=== PATIENT | female | born 1940 | race Caucasian/White ===

== ENCOUNTER 2018-07-09 14:23 | Emergency (ER) | payer MEDICARE ==
[~2018-07-09] VITALS: Ht 162.6 cm; Wt 63.5 kg
--- OUTSIDE RECORDS SUMMARY | 2018-07-09 14:28 | XMS REPORT | Clinical Summary ---
Author Author [facility] Organization [facility] Address Unknown Phone Unavailable Care Team Providers Care Heading Maker Name Role Phone Jono Stone MD PCP Unavailable Allergies Comments Active Allergy Reactions Severity Noted Date Other reaction(s): Dizziness Penicillins 05/07/2015 Trazodone Rash Low 04/30/2018 Medications End Date Status Medication Sig Dispensed Refills Start Date Active tobramycin (TOBREX) 0.3 % INSTILL 1 1 drops DROP INTO 7 BOTH EYES 4 TIMES A DAY Active loperamide (IMODIUM) 1 Take 1 mg by 0 mg/5 mL solution mouth 4 (four) times a day as needed for diarrhea. 09/30/2018 Active gabapentin (NEURONTIN) Take 1 270 capsule 0 100 mg capsule capsule (100 8 mg total) by mouth 3 (three) times a day. Active sucralfate (CARAFATE) 1 Take 1 tablet 90 tablet 3 gram tablet (1 g total) 8 by mouth once daily. Active citalopram (CeleXA) 20 MG Take 1 tablet 90 tablet 1 tablet (20 mg total) 8 by mouth daily. Active benzocaine (HURRICAINE) Apply 1 15 each 0 20 % gel application 8 to the mouth or throat 4 (four) times a day as needed for mucositis. Active levothyroxine (SYNTHROID, Take 1 tablet 90 tablet 1 LEVOXYL) 25 mcg tablet (25 mcg 8 total) by mouth daily. Active iron Take 1 100 capsule 1 [id number] capsule by 8 150-60-25-1 py-rm-cyx-mg mouth daily capsule with breakfast. Active simvastatin (ZOCOR) 20 MG Take 1 tablet 90 tablet 1 tablet (20 mg total) 8 by mouth nightly. Active pramipexole (MIRAPEX) 0.5 TAKE ONE 90 tablet 1 MG tablet TABLET BY 8 MOUTH AT NIGHT Active potassium chloride Take 1 tablet 90 tablet 1 (KLOR-CON) 8 MEQ CR (8 mEq total) 8 tablet by mouth daily. Active pantoprazole (PROTONIX) Take 1 tablet 90 tablet 1 40 MG EC tablet (40 mg total) 8 by mouth daily. 01/08/2019 Active furosemide (LASIX) 20 mg Take 1 tablet 30 tablet 5 tablet (20 mg total) 8 by mouth daily. 03/12/2019 Active warfarin (COUMADIN) 5 MG Take 1 tablet 30 tablet 11 tablet (5mg) by 8 mouth daily for 30 days. 09/30/2017 Discontinued sucralfate (CARAFATE) 1 Take 1 tablet 90 tablet 3 gram tablet (1 g total) 7 by mouth once daily. 07/10/2017 Discontinued warfarin (COUMADIN) 1 MG Take 0.5 15 tablet 5 tablet tablets (0.5 7 mg total) by mouth daily. TAKE 1 TABLET(S) EVERY DAY BY ORAL ROUTE. 07/10/2017 Discontinued amLODIPine (NORVASC) 10 Take 1 tablet 90 tablet 1 mg tablet (10 mg total) 8 by mouth daily. 07/10/2017 Discontinued furosemide (LASIX) 20 mg Take 1 tablet 90 tablet 1 tablet (20 mg total) 8 by mouth daily. 07/10/2017 Discontinued gabapentin (NEURONTIN) Take 1 270 capsule 0 100 mg capsule capsule (100 8 mg total) by mouth 3 (three) times a day. 07/10/2017 Discontinued levothyroxine (SYNTHROID, Take 1 tablet 90 tablet 1 LEVOXYL) 25 mcg tablet (25 mcg 8 total) by mouth once daily. 07/10/2017 Discontinued losartan (COZAAR) 100 MG Take 1 tablet 90 tablet 1 tablet (100 mg 8 total) by mouth once daily. 07/10/2017 Discontinued methotrexate 2.5 MG Take 3 36 tablet 1 tablet tablets (7.5 8 mg total) by mouth every 12 (twelve) hours for 3 (three) doses only each week for 180 days. 07/10/2017 Discontinued potassium chloride Take 1 tablet 90 tablet 1 (KLOR-CON 8) 8 MEQ CR (8 mEq total) 8 tablet by mouth once daily. 07/10/2017 Discontinued pramipexole (MIRAPEX) 0.5 Take 1 tablet 90 tablet 1 MG tablet (0.5 mg 8 total) by mouth nightly. 07/10/2017 Discontinued propranolol (INDERAL) 40 Take 1 tablet 180 tablet 1 MG tablet (40 mg total) 8 by mouth 2 (two) times a day. 07/10/2017 Discontinued simvastatin (ZOCOR) 20 MG Take 1 tablet 90 tablet 1 tablet (20 mg total) 8 by mouth nightly. 09/15/2017 Discontinued fluocinolone-emol cmb#65 Apply 1 Dose 375 kit 0 0.025 % cream topically 8 daily. 07/10/2017 Discontinued citalopram (CeleXA) 20 MG Take 1 tablet 90 tablet 1 tablet (20 mg total) 8 by mouth daily. 07/10/2017 Discontinued predniSONE (DELTASONE) 5 TAKE ONE 90 tablet 0 mg tablet TABLET BY 8 MOUTH ONCE DAILY FOR 90 DAYS 09/19/2017 Discontinued esomeprazole (NexIUM) 40 TAKE ONE 1 MG capsule CAPSULE BY 8 MOUTH EVERY MORNING BEFORE BREAKFAST 09/01/2017 Discontinued amLODIPine (NORVASC) 10 Take 1 tablet 90 tablet 1 mg tablet (10 mg total) 8 by mouth daily. 09/30/2017 Discontinued citalopram (CeleXA) 20 MG Take 1 tablet 90 tablet 1 tablet (20 mg total) 8 by mouth daily. 07/24/2017 Discontinued furosemide (LASIX) 20 mg Take 1 tablet 90 tablet 1 tablet (20 mg total) 8 by mouth daily. 09/30/2017 Discontinued gabapentin (NEURONTIN) Take 1 270 capsule 0 100 mg capsule capsule (100 8 mg total) by mouth 3 (three) times a day. 09/01/2017 Discontinued levothyroxine (SYNTHROID, Take 1 tablet 90 tablet 1 LEVOXYL) 25 mcg tablet (25 mcg 8 total) by mouth once daily. 09/30/2017 Discontinued losartan (COZAAR) 100 MG Take 1 tablet 90 tablet 1 tablet (100 mg 8 total) by mouth once daily. 10/19/2017 Discontinued methotrexate 2.5 MG Take 3 36 tablet 1 tablet tablets (7.5 8 mg total) by mouth every 12 (twelve) hours for 3 (three) doses only each week for 180 days. 08/14/2017 Discontinued potassium chloride Take 1 tablet 90 tablet 1 (KLOR-CON 8) 8 MEQ CR (8 mEq total) 8 tablet by mouth once daily. 09/01/2017 Discontinued pramipexole (MIRAPEX) 0.5 Take 1 tablet 90 tablet 1 MG tablet (0.5 mg 8 total) by mouth nightly. 09/30/2017 Discontinued predniSONE (DELTASONE) 5 TAKE ONE 90 tablet 1 mg tablet TABLET BY 8 MOUTH ONCE DAILY FOR 90 DAYS 09/30/2017 Discontinued propranolol (INDERAL) 40 Take 1 tablet 180 tablet 1 MG tablet (40 mg total) 8 by mouth 2 (two) times a day. 09/30/2017 Discontinued simvastatin (ZOCOR) 20 MG Take 1 tablet 90 tablet 1 tablet (20 mg total) 8 by mouth nightly. 09/02/2017 Discontinued warfarin (COUMADIN) 1 MG Take 0.5 15 tablet 5 tablet tablets (0.5 8 mg total) by mouth daily. TAKE 1 TABLET(S) EVERY DAY BY ORAL ROUTE. 09/02/2017 Discontinued warfarin (COUMADIN) 3 MG One po daily 90 tablet 1 tablet 8 09/30/2017 Discontinued furosemide (LASIX) 40 mg Take 1 tablet 90 tablet 1 tablet (40 mg total) 8 by mouth daily. 07/31/2017 sulfamethoxazole-trimetho Take 1 tablet 14 tablet 0 prim (BACTRIM DS) 800-160 by mouth 2 8 mg per tablet (two) times a day for 7 days. 09/01/2017 Discontinued spironolactone 0 (ALDACTONE) 25 MG tablet 8 08/18/2017 diphenoxylate-atropine Take 1 tablet 10 tablet 0 (LOMOTIL) 2.5-0.025 mg by mouth 4 8 per tablet (four) times a day as needed for diarrhea for up to 5 days. 09/01/2017 Discontinued potassium chloride 20 mEq Take 20 mEq 30 tablet 1 tablet extended release by mouth once 8 daily for 30 days. 09/22/2017 aspirin (ECOTRIN) 81 MG Take 1 tablet 30 tablet 0 enteric coated tablet (81 mg total) 8 by mouth daily for 30 days. 09/30/2017 Discontinued levothyroxine (SYNTHROID, TAKE ONE 64 tablet 0 LEVOXYL) 25 mcg tablet TABLET BY 8 MOUTH ONCE DAILY 09/30/2017 Discontinued potassium chloride TAKE ONE 64 tablet 0 (KLOR-CON) 8 MEQ CR TABLET BY 8 tablet MOUTH ONCE DAILY 09/30/2017 Discontinued amLODIPine (NORVASC) 10 TAKE ONE 64 tablet 0 mg tablet TABLET BY 8 MOUTH DAILY 09/30/2017 Discontinued pramipexole (MIRAPEX) 0.5 TAKE ONE 64 tablet 0 MG tablet TABLET BY 8 MOUTH AT NIGHT 09/19/2017 Discontinued rivaroxaban (XARELTO) 15 Take 1 tablet 30 tablet 11 mg tablet (15 mg total) 8 by mouth daily. 10/18/2017 meclizine (ANTIVERT) 25 Take 1 tablet 90 tablet 0 mg tablet (25 mg total) 8 by mouth 3 (three) times a day for 30 days. 09/30/2017 Discontinued apixaban (ELIQUIS) 5 mg Take 1 tablet 60 tablet 0 tablet (5 mg total) 8 by mouth 2 (two) times a day for 30 days. 09/30/2017 Discontinued pantoprazole (PROTONIX) Take 1 tablet 30 tablet 0 40 MG EC tablet (40 mg total) 8 by mouth daily for 30 days. 09/23/2017 Discontinued traMADol (ULTRAM) 50 mg TAKE ONE 120 tablet 5 tablet TABLET BY 8 MOUTH EVERY 6 HOURS NEEDED FOR MODERATE PAIN 09/30/2017 Discontinued spironolactone 0 (ALDACTONE) 25 MG tablet 8 09/30/2017 Discontinued warfarin (COUMADIN) 1 MG 0 tablet 8 09/30/2017 Discontinued collagenase (SANTYL) Apply 15 g 0 ointment topically 8 daily for 30 days. 10/23/2017 traMADol (ULTRAM) 50 mg TAKE ONE 30 tablet 0 tablet TABLET BY 8 MOUTH EVERY 6 HOURS NEEDED FOR MODERATE PAIN 09/30/2017 Discontinued furosemide (LASIX) 20 mg 0 tablet 8 09/30/2017 Discontinued XARELTO 15 mg tablet 0 8 10/19/2017 Discontinued XARELTO 15 mg tablet Take 1 tablet 90 tablet 1 (15 mg total) 8 by mouth daily. 10/19/2017 Discontinued sucralfate (CARAFATE) 1 Take 1 tablet 90 tablet 3 gram tablet (1 g total) 8 by mouth once daily. 10/19/2017 Discontinued spironolactone Take 1 tablet 45 tablet 1 (ALDACTONE) 25 MG tablet (25 mg total) 8 by mouth every other day. 10/19/2017 Discontinued simvastatin (ZOCOR) 20 MG Take 1 tablet 90 tablet 1 tablet (20 mg total) 8 by mouth nightly. 10/19/2017 Discontinued propranolol (INDERAL) 40 Take 1 tablet 180 tablet 1 MG tablet (40 mg total) 8 by mouth 2 (two) times a day. 10/19/2017 Discontinued predniSONE (DELTASONE) 5 TAKE ONE 90 tablet 1 mg tablet TABLET BY 8 MOUTH ONCE DAILY FOR 90 DAYS 10/19/2017 Discontinued pramipexole (MIRAPEX) 0.5 TAKE ONE 90 tablet 1 MG tablet TABLET BY 8 MOUTH AT NIGHT 10/19/2017 Discontinued pantoprazole (PROTONIX) Take 1 tablet 90 tablet 1 40 MG EC tablet (40 mg total) 8 by mouth daily for 30 days. 10/19/2017 Discontinued potassium chloride Take 1 tablet 90 tablet 1 (KLOR-CON) 8 MEQ CR (8 mEq total) 8 tablet by mouth daily. 10/19/2017 Discontinued losartan (COZAAR) 100 MG Take 1 tablet 90 tablet 1 tablet (100 mg 8 total) by mouth once daily. 10/19/2017 Discontinued levothyroxine (SYNTHROID, Take 1 tablet 64 tablet 1 LEVOXYL) 25 mcg tablet (25 mcg 8 total) by mouth daily. 10/19/2017 Discontinued furosemide (LASIX) 40 mg Take 0.5 45 tablet 1 tablet tablets (20 8 mg total) by mouth daily. 10/19/2017 Discontinued citalopram (CeleXA) 20 MG Take 1 tablet 90 tablet 1 tablet (20 mg total) 8 by mouth daily. 10/19/2017 Discontinued amLODIPine (NORVASC) 10 Take 1 tablet 90 tablet 1 mg tablet (10 mg total) 8 by mouth daily. 10/28/2017 Discontinued gabapentin (NEURONTIN) TAKE ONE 33 capsule 0 100 mg capsule CAPSULE BY 8 MOUTH THREE TIMES A DAY 12/24/2017 Discontinued XARELTO 15 mg tablet Take 1 tablet 90 tablet 1 (15 mg total) 8 by mouth daily. 10/30/2017 Discontinued spironolactone Take 1 tablet 45 tablet 1 (ALDACTONE) 25 MG tablet (25 mg total) 8 by mouth every other day. 12/24/2017 Discontinued simvastatin (ZOCOR) 20 MG Take 1 tablet 90 tablet 1 tablet (20 mg total) 8 by mouth nightly. 12/20/2017 Discontinued propranolol (INDERAL) 40 Take 1 tablet 180 tablet 1 MG tablet (40 mg total) 8 by mouth 2 (two) times a day. 12/24/2017 Discontinued predniSONE (DELTASONE) 5 TAKE ONE 90 tablet 1 mg tablet TABLET BY 8 MOUTH ONCE DAILY FOR 90 DAYS 12/24/2017 Discontinued pramipexole (MIRAPEX) 0.5 TAKE ONE 90 tablet 1 MG tablet TABLET BY 8 MOUTH AT NIGHT 12/24/2017 Discontinued potassium chloride Take 1 tablet 90 tablet 1 (KLOR-CON) 8 MEQ CR (8 mEq total) 8 tablet by mouth daily. 11/18/2017 pantoprazole (PROTONIX) Take 1 tablet 90 tablet 1 40 MG EC tablet (40 mg total) 8 by mouth daily for 30 days. 12/24/2017 Discontinued methotrexate 2.5 MG Take 3 36 tablet 1 tablet tablets (7.5 8 mg total) by mouth every 12 (twelve) hours for 3 (three) doses only each week for 180 days. 12/11/2017 Discontinued losartan (COZAAR) 100 MG Take 1 tablet 90 tablet 1 tablet (100 mg 8 total) by mouth once daily. 12/24/2017 Discontinued levothyroxine (SYNTHROID, Take 1 tablet 64 tablet 1 LEVOXYL) 25 mcg tablet (25 mcg 8 total) by mouth daily. 01/08/2018 Discontinued furosemide (LASIX) 40 mg Take 0.5 45 tablet 1 tablet tablets (20 8 mg total) by mouth daily. 12/20/2017 Discontinued amLODIPine (NORVASC) 10 Take 1 tablet 90 tablet 1 mg tablet (10 mg total) 8 by mouth daily. 11/11/2017 traMADol (ULTRAM) 50 mg Take 1 tablet 30 tablet 0 tablet (50 mg total) 8 by mouth every 4 (four) hours as needed for moderate pain for up to 30 doses. 12/24/2017 Discontinued spironolactone Take 1 tablet 45 tablet 1 (ALDACTONE) 25 MG tablet (25 mg total) 8 by mouth every other day. 11/10/2017 doxycycline (ADOXA) 100 Take 1 tablet 14 tablet 0 MG tablet (100 mg 8 total) by mouth 2 (two) times a day for 7 days. 12/24/2017 Discontinued pantoprazole (PROTONIX) Take 40 mg by 1 40 MG EC tablet mouth daily. 8 12/20/2017 Discontinued losartan (COZAAR) 50 MG Take 1 tablet 90 tablet 1 tablet (50 mg total) 8 by mouth daily. 05/01/2018 Discontinued spironolactone Take 1 tablet 30 tablet 11 (ALDACTONE) 25 MG tablet (25 mg total) 8 by mouth daily. 12/24/2017 Discontinued pantoprazole (PROTONIX) Take 1 tablet 90 tablet 1 40 MG EC tablet (40 mg total) 8 by mouth daily. 03/12/2018 Discontinued XARELTO 15 mg tablet Take 1 tablet 30 tablet 5 (15 mg total) 8 by mouth nightly. 05/01/2018 Discontinued spironolactone Take 1 tablet 45 tablet 1 (ALDACTONE) 25 MG tablet (25 mg total) 8 by mouth every other day. 06/25/2018 predniSONE (DELTASONE) 5 TAKE ONE 90 tablet 1 mg tablet TABLET BY 8 MOUTH ONCE DAILY FOR 90 DAYS 06/22/2018 methotrexate 2.5 MG Take 3 36 tablet 1 tablet tablets (7.5 8 mg total) by mouth once a week for 180 days. 06/01/2018 benzonatate (TESSALON) Take 1 30 capsule 0 100 MG capsule capsule (100 9 mg total) by mouth 3 (three) times a day as needed for cough for up to 30 days. 06/01/2018 ipratropium-albuterol Take 3 mL by 360 mL 0 (DUO-NEB) 0.5-2.5 mg/mL nebulization 9 nebulizer every 4 (four) hours while awake for 30 days. 05/12/2018 levoFLOXacin (LEVAQUIN) Take 1 tablet 10 tablet 0 500 MG tablet (500 mg 9 total) by mouth daily for 10 days. 05/07/2018 methylPREDNISolone follow 21 tablet 0 (MEDROL, JOVON,) 4 mg package 9 tablet directions 06/01/2018 furosemide (LASIX) 40 mg Take 1 tablet 60 tablet 0 tablet (40 mg total) 9 by mouth 2 (two) times a day for 30 days. 06/01/2018 potassium chloride Take 1 tablet 60 tablet 0 (K-DUR) 20 MEQ CR tablet (20 mEq 9 total) by mouth 2 (two) times a day for 30 days. 06/17/2018 fluconazole (DIFLUCAN) Take 2 4 tablet 0 100 MG tablet tablets (200 9 mg total) by mouth once a week for 2 doses. 06/19/2018 valACYclovir (VALTREX) Take 1 tablet 30 tablet 0 1000 MG tablet (1,000 mg 9 total) by mouth 3 (three) times a day for 10 days. 06/16/2018 fluconazole (DIFLUCAN) Take 1 tablet 1 tablet 0 150 MG tablet (150 mg 9 total) by mouth once for 1 dose. 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, chronic 07/24/2017 Traumatic open wound of right lower leg 05/07/2017 Risk for falls 04/16/2017 History of knee replacement, total, bilateral 04/16/2017 Atherosclerosis of [place] coronary artery of [place] heart with angina 04/16/2017 pectoris Personal history of transient cerebral ischemia 04/16/2017 Nonrheumatic aortic valve stenosis 04/16/2017 Personal history of allergy to penicillin 04/16/2017 History of artificial joint 04/15/2017 History of cataract extraction 04/15/2017 Pseudophakia of both eyes 04/15/2017 History of colon polyps 04/15/2017 Family history of ischemic heart disease (IHD) 04/15/2017 Nausea 09/12/2016 Chest pain, rule out acute myocardial infarction 08/24/2016 Aphthous stomatitis 08/14/2016 Abdominal pain 05/07/2015 Acquired hypothyroidism 05/07/2015 Acquired trigger finger 05/07/2015 Anemia 05/07/2015 Anxiety 05/07/2015 Arthropathy 05/07/2015 Atrial fibrillation 05/07/2015 Benign essential hypertension 05/07/2015 Benign hypertensive heart disease without congestive heart failure 05/07/2015 Abnormal blood chemistry level 05/07/2015 Contusion of head 05/07/2015 Cerebral arteritis in other diseases classified elsewhere 05/07/2015 Stage 3 chronic kidney disease 05/07/2015 Chronic obstructive pulmonary disease 05/07/2015 Chronic pain 05/07/2015 Macular degeneration 05/07/2015 Diverticulosis of colon without diverticulitis 05/07/2015 Stress incontinence in female 05/07/2015 Gastroesophageal reflux disease 05/07/2015 Hemiparesis following cerebrovascular accident 05/07/2015 HLD (hyperlipidemia) 05/07/2015 Hiatal hernia 05/07/2015 Benign hypertensive heart and kidney disease with CHF and stage 3 chronic 05/07/2015 kidney disease Hypothyroidism 05/07/2015 Iron deficiency anemia 05/07/2015 Blindness, legal 05/07/2015 Low back pain 05/07/2015 Femoral bruit 05/07/2015 Rheumatoid arthritis 05/07/2015 Tobacco dependence syndrome 05/07/2015 Venous stasis 05/07/2015 Resolved Problems Problem Noted Date Resolved Date Gastrointestinal hemorrhage 09/06/2017 12/24/2017 Gastrointestinal hemorrhage with melena 09/06/2017 12/24/2017 Overview: Added automatically from request for surgery [id number] Venous stasis ulcer of right calf with fat layer exposed without varicose 06/08/2017 07/10/2017 veins Pneumonia of right lower lobe due to infectious organism 05/24/2017 07/10/2017 BMI 25.0-25.9,adult 05/07/2017 07/10/2017 Severe episode of recurrent major depressive disorder, without psychotic 04/16/2017 07/10/2017 features Senile arthritis 04/16/2017 07/10/2017 Routine general medical examination at a health care facility 04/16/2017 07/10/2017 BMI 24.0-24.9, adult 04/15/2017 07/10/2017 History of skin cancer 04/15/2017 07/10/2017 BMI 26.0-26.9,adult 01/13/2017 12/24/2017 Dizziness 12/25/2016 07/10/2017 Influenza vaccination administered at current visit 12/09/2016 07/10/2017 Seborrheic keratoses 12/09/2016 07/10/2017 Overview: no sign of inflammation; reassured; rtc for cryo prn Early satiety 09/12/2016 07/10/2017 Traumatic hematoma of right lower leg 05/23/2016 07/10/2017 COPD exacerbation 04/08/2016 07/10/2017 Major depressive disorder, recurrent, severe without psychotic features 05/07/2015 07/10/2017 Venous stasis dermatitis 05/07/2015 07/10/2017 Vertigo 05/07/2015 07/10/2017 Encounters Care Team Description Date Type Specialty Javy Tarango MD Chronic venous stasis dermatitis (Primary Dx); Chronic kidney disease, unspecified CKD stage 07/02/2018 Emergency Emergency Medicine 07/02/2018 Travel Jono Stone MD 06/24/2018 Telephone Family Jonathan Layton MD Edema of both legs 06/21/2018 Hospital Radiology Encounter Jonathan Mcmillan MD Edema of both legs (Primary Dx) 06/21/2018 Transcribe Access Orders Jono Stone MD 06/16/2018 Orders Only Family Medicine Jono Stone MD Non-pressure chronic ulcer of buttock with fat layer exposed (HCC) (Primary Dx) 06/09/2018 Office Visit Wound Care Jono Stone MD 06/09/2018 Orders Only Family Medicine Joel Stern MD Allencherril, Jonathon Shin MD Hypervolemia, unspecified hypervolemia type (Primary Dx); Cough 04/30/2018 Emergency General Internal Medicine - 05/02/2018 Elizabeth Thurman MA Atrial fibrillation, unspecified type (HCC) (Primary Dx) 03/12/2018 Refill Family Medicine Melissa Sanchez MA Eye exam, routine (Primary Dx) 03/11/2018 Orders Only [facility] Melissa Sanchez MA Loosening of knee joint prosthesis, initial encounter (HCC) (Primary Dx); Mechanical loosening of prosthetic knee, initial encounter (HCC) 03/11/2018 Orders Only Family Danyell Barney NP Pigmented skin lesions (Primary Dx); Hand pain, right 01/21/2018 Orders Only Family Danyell Barney NP Rheumatoid arteritis (Primary Dx) 01/13/2018 Office Visit Family Elizabeth Casper MA 01/08/2018 Refill Family Medicine Jono Stone MD Traumatic open wound of right lower leg, subsequent encounter (Primary Dx); Influenza vaccination given; Tobacco dependence syndrome; Moderate episode of recurrent major depressive disorder; Other hyperlipidemia; BMI 24.0-24.9, adult; Other iron deficiency anemia; Hypothyroidism, unspecified type; Gastroesophageal reflux disease without esophagitis; Simple chronic bronchitis; Atherosclerosis of [place] coronary artery of [place] heart with angina pectoris; Paroxysmal atrial fibrillation; 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, chronic; Rheumatoid arthritis involving right shoulder with positive rheumatoid factor; CKD (chronic kidney disease) stage 3, GFR 30-59 ml/min; Benign hypertensive heart and kidney disease with CHF and stage 3 chronic kidney disease 12/24/2017 Office Visit Family Medicine Jono Stone MD 12/24/2017 Orders Only Family Medicine Anil Juarez MD Berberian, Esteban N., MD Hypotension due to drugs (Primary Dx); Hypotension, unspecified hypotension type; Dizziness; Anemia, unspecified type; Chronic bronchitis, unspecified chronic bronchitis type 12/18/2017 Emergency General Internal Medicine - 12/20/2017 Jono Stone MD Istre, Trudy Bertrand, NP Stomatitis and mucositis (Primary Dx) 12/15/2017 Office Visit Family Jono Louis MD Localized osteoarthrosis, shoulder region, right (Primary Dx) 12/11/2017 Office Visit Family Medicine Jono Stone MD 12/11/2017 Orders Only Family Medicine Jono Stone MD Traumatic open wound of right lower leg, subsequent encounter (Primary Dx) 11/30/2017 Office Visit Family Medicine Danyell Roche NP Loosening of knee joint prosthesis, initial encounter (Primary Dx); Mechanical loosening of prosthetic knee, initial encounter 11/23/2017 Orders Only Family Medicine Elizabeth Thurman MA Right knee pain, unspecified chronicity 11/20/2017 Orders Only [facility] Melissa Sanchez MA Right knee pain, unspecified chronicity (Primary Dx) 11/17/2017 Orders Only Family Medicine Jono Stone MD Traumatic open wound of right lower leg, subsequent encounter (Primary Dx) 11/16/2017 Office Visit Family Jono Louis MD Traumatic open wound of right lower leg, subsequent encounter (Primary Dx) 11/03/2017 Office Visit Family Medicine Melissa Sanchez MA 10/30/2017 Orders Only Family Medicine Davian Aquino MD Berberian, Esteban N., MD Fall, initial encounter (Primary Dx); Syncope, unspecified syncope type; Hypotension, unspecified hypotension type; Chronic bronchitis, unspecified chronic bronchitis type 10/28/2017 Emergency General Internal Medicine - 10/29/2017 Jono Stone MD Skin tear of left upper arm without complication, initial encounter (Primary Dx) 10/19/2017 Office Visit Family Medicine Chase, Jono, MD 10/02/2017 Refill [facility] Mee Griggs, PAPO 10/02/2017 Telephone [facility] Jono Stone MD Venous stasis ulcer of calf limited to breakdown of skin without varicose veins, unspecified laterality (Primary Dx); Tobacco dependence syndrome; BMI 26.0-26.9,adult; Iron deficiency anemia due to chronic blood loss; Hypothyroidism, unspecified type 09/30/2017 Office Visit [facility] Danyell Roche NP Venous stasis (Primary Dx); Venous stasis ulcer of other part of left lower leg limited to breakdown of skin without varicose veins; Anemia, unspecified type 09/23/2017 Office Visit [facility] Mee Griggs, PAPO 09/23/2017 Telephone [facility] Jono Stone MD 09/21/2017 Refill [facility] Jocelyn Chaudhry RN 09/19/2017 Patient Quality Outreach Jessica Duncan MD Allencherril, Paul Joseph, MD Hypotension, unspecified hypotension type (Primary Dx); Weakness; Acute kidney injury; Chronic bronchitis, unspecified chronic bronchitis type; Idiopathic hypotension 09/12/2017 [facility] General Internal Medicine - Encounter 09/19/2017 Jocelyn Chaudhry RN 09/10/2017 Patient Quality Outreach Samuel Joseph MD COLONOSCOPY with BX 09/09/2017 Surgery Gastroenterology [place], Yaneth Orta MD 09/09/2017 Anesthesia Gastroenterology Event Samuel Joseph MD EGD WITH BIOPSY 09/08/2017 Surgery Gastroenterology [facility] [place], Ashley Costa MD 09/08/2017 Anesthesia Gastroenterology Event Joel Stern MD Berberian, Esteban N., MD Gastrointestinal hemorrhage with melena (Primary Dx); Gastrointestinal hemorrhage, unspecified gastrointestinal hemorrhage type; Chronic bronchitis, unspecified chronic bronchitis type 09/06/2017 [facility] General Internal Medicine - Encounter 09/10/2017 Jono Stone MD Benign hypertensive heart disease without congestive heart failure (Primary Dx); Atherosclerosis of [place] coronary artery of [place] heart with angina pectoris 09/02/2017 Office Visit Family Danyell Barney, ANNMAIRE 08/31/2017 Refill [facility] Jono Stone MD Istre, Trudy Bertrand [employer] [facility] discharge follow-up (Primary Dx); Atherosclerosis of [place] coronary artery of [place] heart with angina pectoris; Chronic obstructive pulmonary disease, unspecified COPD type; 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, chronic; Tobacco dependence syndrome; Frail elderly; Debility; Risk for falls 08/24/2017 Office Visit Family Medicine Yolanda Godinez RN 08/23/2017 Patient Quality Outreach Joel Stern MD Allencherril, Jonathon Shin MD Left leg weakness (Primary Dx); Transient cerebral ischemia, unspecified type; Chronic bronchitis, unspecified chronic bronchitis type; Epigastric pain 08/21/2017 Emergency General Internal Medicine - 08/23/2017 Elizabeth Thurman MA Atrial fibrillation, unspecified type (Primary Dx) 08/21/2017 Telephone Family Medicine Danyell Roche NP 08/21/2017 Telephone Family Medicine Jono Stone MD Venous ulcer (Primary Dx) 08/17/2017 Clinical Family Medicine Support Melissa Sanchez MA 08/14/2017 Orders Only Family Medicine Jono Stone MD Acute diarrhea (Primary Dx) 08/13/2017 Office Visit Family Jono Louis MD 08/13/2017 Orders Only Family Medicine Jono Stone MD Venous stasis ulcer with edema of lower leg (Primary Dx) 08/07/2017 Office Visit Family Medicine Danyell Roche NP Venous stasis (Primary Dx) 07/31/2017 Office Visit Family Jono Louis MD Venous stasis ulcer of other part of left lower leg limited to breakdown of skin without varicose veins (Primary Dx); Benign hypertensive heart disease with CHF (congestive heart failure); Atherosclerosis of [place] coronary artery of [place] heart with angina pectoris; Nonrheumatic aortic valve stenosis; BMI 26.0-26.9,adult; Tobacco dependence syndrome; 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, chronic 07/24/2017 Office Visit Family Medicine Elizabeth Thurman MA 07/14/2017 Telephone Family Medicine Jono Stone MD Benign hypertensive heart disease without congestive heart failure (Primary Dx); Persistent atrial fibrillation; Atherosclerosis of [place] coronary artery of [place] heart with angina pectoris; Nonrheumatic aortic valve stenosis; Simple chronic bronchitis; 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; Rheumatoid arthritis involving both hands with positive rheumatoid factor; Gastroesophageal reflux disease, esophagitis presence not specified; Other iron deficiency anemia; BMI 24.0-24.9, adult; History of knee replacement, total, bilateral; Other hyperlipidemia; Macular degeneration; Mild episode of recurrent major depressive disorder; Tobacco dependence syndrome 07/10/2017 Office Visit Family Medicine after 07/08/2017 Immunizations Name Dates Previously Given Next Due FLUCELVAX QUAD PF (0.5mL 12/20/2017 (Deferred: - paient wishes to get flu syringe) vaccine with PCP) FLUZONE HIGH-DOSE PF 12/24/2017, 12/09/2016, 12/06/2015, 12/18/2014 Influenza Trivalent 01/14/2014 Pneumococcal Conjugate 09/12/2015 13-Valent Pneumococcal 12/27/2013 Polysaccharide Tdap 10/28/2017 (Deferred: - pt reports recieving medication within the last 5 years; Dr. Banda notified) Family History Medical History Relation Name Comments Heart disease Father Arthritis Mother Heart disease Mother Relation Name Status Comments Father Mother Social History Date Tobacco Use Types Packs/Day Years Used Current Every Day Smoker Cigarettes 0.25 62 Smokeless Tobacco: Never Used Comments: started at 11 Alcohol Use Drinks/Week oz/Week Comments No Sex Assigned at Date Recorded Not on file Industry Job Start Date Occupation Not on file Not on file Not on file Travel End Travel History Travel Start No recent travel history available. Last Filed Vital Signs Time Taken Vital Sign Reading 07/02/2018 5:41 PM CDT Blood Pressure 112/56 07/02/2018 5:41 PM CDT Pulse 72 07/02/2018 5:41 PM CDT Temperature 36.6 C (97.8 F) 07/02/2018 5:41 PM CDT Respiratory Rate 17 07/02/2018 5:41 PM CDT Oxygen Saturation 97% - Inhaled Oxygen - Concentration 07/02/2018 1:43 PM CDT Weight 63.5 kg (140 lb) 07/02/2018 1:43 PM CDT Height 162.6 cm (5' 4") 07/02/2018 1:43 PM CDT Body Mass Index 24.03 Plan of Treatment Health Maintenance Due Date Last Done Comments SHINGLES VACCINES (#1) 1989 INFLUENZA VACCINE 11/04/2018 12/24/2017, 12/09/2016, 12/06/2015, Additional history exists PNEUMOCOCCAL Completed 12/27/2013 POLYSACCHARIDE VACCINE AGE 65 AND OVER 65+ PNEUMOCOCCAL VACCINE Completed 09/12/2015, 12/27/2013 Implants Device Identifier Shelf Expiration Date Model / Serial / Lot Implanted Type Area Manufactur er Metal Implant Procedures Comments Procedure Name Priority Date/Time Associated Diagnosis TROPONIN Timed 07/02/2018 5:23 PM CDT XR CHEST 1 VW PORTABLE STAT 07/02/2018 2:43 PM CDT SMEAR REVIEW STAT 07/02/2018 1:59 PM CDT PARTIAL THROMBOPLASTIN STAT 07/02/2018 TIME (PTT) 1:59 PM CDT PROTHROMBIN TIME WITH INR STAT 07/02/2018 1:59 PM CDT ESTIMATED GFR STAT 07/02/2018 1:59 PM CDT B NATRIURETIC PEPTIDE STAT 07/02/2018 1:59 PM CDT TROPONIN STAT 07/02/2018 1:59 PM CDT CREATINE KINASE, TOTAL STAT 07/02/2018 (CPK) 1:59 PM CDT COMPREHENSIVE METABOLIC STAT 07/02/2018 PANEL 1:59 PM CDT HC COMPLETE BLD COUNT STAT 07/02/2018 W/AUTO DIFF 1:59 PM CDT ECG 12-LEAD STAT 07/02/2018 1:50 PM CDT ECG ED PRELIMINARY Routine 07/02/2018 INTERPRETATION 1:38 PM CDT US DUPLEX VENOUS LOWER Routine 06/21/2018 Edema of both legs EXTREMITY BILATERAL 5:51 PM CDT AEROBIC CULTURE Routine 06/09/2018 3:40 PM [employer] GRAM STAIN Routine 06/09/2018 3:40 PM [employer] ANAEROBIC CULTURE Routine 06/09/2018 2:40 PM [employer] SMEAR REVIEW Timed 05/02/2018 5:26 AM [employer] ESTIMATED GFR Timed 05/02/2018 5:26 AM [employer] HC COMPLETE BLD COUNT Timed 05/02/2018 W/AUTO DIFF 5:26 AM [employer] BASIC METABOLIC PANEL Timed 05/02/2018 5:26 AM [employer] PROTHROMBIN TIME WITH INR Timed 05/02/2018 5:[address] ANGIOGRAM PE CHEST STAT 05/01/2018 5:29 PM [employer] PROTHROMBIN TIME WITH INR STAT 05/01/2018 5:25 AM [employer] LACTIC ACID LEVEL, SEPSIS Timed 05/01/2018 - NOW AND REPEAT 2X EVERY 5:25 AM [employer] 3 HOURS TROPONIN Timed 05/01/2018 5:25 AM [employer] LACTIC ACID LEVEL, SEPSIS Timed 05/01/2018 - NOW AND REPEAT 2X EVERY 12:28 AM [employer] 3 HOURS TROPONIN Timed 05/01/2018 12:28 AM [employer] BLOOD CULTURE, AEROBIC & Routine 04/30/2018 ANAEROBIC 8:03 PM [employer] XR CHEST 1 VW PORTABLE STAT 04/30/2018 7:58 PM [employer] SMEAR REVIEW STAT 04/30/2018 7:50 PM [employer] ESTIMATED GFR STAT 04/30/2018 7:50 PM [employer] LACTIC ACID LEVEL, SEPSIS Timed 04/30/2018 - NOW AND REPEAT 2X EVERY 7:50 PM [employer] 3 HOURS B NATRIURETIC PEPTIDE STAT 04/30/2018 7:50 PM [employer] IN[employer]ER TROPONIN STAT 04/30/2018 7:50 PM [employer] CREATINE KINASE, TOTAL STAT 04/30/2018 (CPK) 7:50 PM [employer] HEPATIC FUNCTION PANEL STAT 04/30/2018 7:50 PM [employer] BASIC METABOLIC PANEL STAT 04/30/2018 7:50 PM [employer] PARTIAL THROMBOPLASTIN STAT 04/30/2018 TIME (PTT) 7:50 PM [employer] IN[employer]ER PROTHROMBIN TIME WITH INR STAT 04/30/2018 7:50 PM [employer] HC COMPLETE BLD COUNT STAT 04/30/2018 W/AUTO DIFF 7:50 PM [employer]ER BLOOD CULTURE, AEROBIC & Routine 04/30/2018 ANAEROBIC 7:50 PM [employer]ER ECG 12-LEAD STAT 04/30/2018 7:36 PM [employer] IN[employer]ER ECG ED PRELIMINARY Routine 04/30/2018 INTERPRETATION 7:25 PM [employer] IN[employer]ER CBC WITH PLATELET AND Routine 12/24/2017 DIFFERENTIAL 3:54 PM CDT TROPONIN Timed 12/19/2017 5:25 PM CDT ECHOCARDIOGRAM 2D Routine 12/19/2017 COMPLETE W MMODE SPECTRAL 4:50 PM CDT COLOR DOPPLER (21955) TROPONIN Timed 12/19/2017 1:16 PM CDT HEMOGLOBIN & HEMATOCRIT Routine 12/19/2017 11:20 AM CDT TROPONIN Timed 12/19/2017 11:20 AM CDT LACTIC ACID LEVEL, SEPSIS Timed 12/19/2017 - NOW AND REPEAT 2X EVERY 11:20 AM CDT 3 HOURS TRANSFUSE RED BLOOD CELLS STAT 12/19/2017 9:39 AM CDT NV CRITICAL CARE, E/M Routine 12/19/2017 30-74 MINUTES 3:43 AM CDT PREPARE RBC Timed 12/19/2017 12:37 AM CDT TYPE AND SCREEN Timed 12/19/2017 12:37 AM CDT URINALYSIS SCREEN AND Routine 12/19/2017 MICROSCOPY, WITH REFLEX 12:06 AM CDT TO CULTURE URINE CULTURE Routine 12/19/2017 12:00 AM CDT OCCULT BLOOD, STOOL Routine 12/18/2017 11:50 PM CDT BLOOD CULTURE, AEROBIC & Routine 12/18/2017 ANAEROBIC 11:31 PM CDT XR CHEST 1 VW PORTABLE STAT 12/18/2017 11:17 PM CDT ECG ED PRELIMINARY Routine 12/18/2017 INTERPRETATION 11:09 PM CDT ECG 12-LEAD STAT 12/18/2017 11:06 PM CDT SMEAR REVIEW STAT 12/18/2017 10:49 PM CDT ESTIMATED GFR STAT 12/18/2017 10:49 PM CDT TROPONIN STAT 12/18/2017 10:49 PM CDT B NATRIURETIC PEPTIDE STAT 12/18/2017 10:49 PM CDT LIPASE LEVEL STAT 12/18/2017 10:49 PM CDT HEPATIC FUNCTION PANEL STAT 12/18/2017 10:49 PM CDT MAGNESIUM LEVEL STAT 12/18/2017 10:49 PM CDT LACTIC ACID LEVEL, SEPSIS STAT 12/18/2017 - NOW AND REPEAT 2X EVERY 10:49 PM CDT 3 HOURS HC COMPLETE BLD COUNT STAT 12/18/2017 W/AUTO DIFF 10:49 PM CDT BASIC METABOLIC PANEL STAT 12/18/2017 10:49 PM CDT BLOOD CULTURE, AEROBIC & Routine 12/18/2017 ANAEROBIC 10:45 PM CDT PROTHROMBIN TIME WITH INR Routine 12/11/2017 9:31 AM CDT TROPONIN Timed 10/29/2017 4:31 AM CDT TROPONIN Timed 10/29/2017 1:04 AM CDT TROPONIN Timed 10/28/2017 4:35 PM CDT XR PELVIS 3+ VW STAT 10/28/2017 2:31 PM CDT XR CHEST 1 VW PORTABLE STAT 10/28/2017 1:35 PM CDT ECG ED PRELIMINARY Routine 10/28/2017 INTERPRETATION 1:18 PM CDT ZZESTIMATED GFR Routine 10/28/2017 1:14 PM CDT B NATRIURETIC PEPTIDE Routine 10/28/2017 1:14 PM CDT TROPONIN Routine 10/28/2017 1:14 PM CDT COMPREHENSIVE METABOLIC Routine 10/28/2017 PANEL 1:14 PM CDT PROTHROMBIN TIME WITH INR Routine 10/28/2017 1:14 PM CDT HC COMPLETE BLD COUNT Routine 10/28/2017 W/AUTO DIFF 1:14 PM CDT ECG 12-LEAD STAT 10/28/2017 1:07 PM CDT THYROID STIMULATING Routine 09/30/2017 Hypothyroidism, HORMONE 10:13 AM CDT unspecified type TOTAL IRON BINDING Routine 09/30/2017 Iron deficiency anemia CAPACITY 10:13 AM CDT due to chronic blood loss FERRITIN LEVEL Routine 09/30/2017 Iron deficiency anemia 10:13 AM CDT due to chronic blood loss CBC WITH PLATELET AND Routine 09/23/2017 Anemia, unspecified type DIFFERENTIAL 9:29 AM CDT ZZESTIMATED GFR STAT 09/18/2017 2:02 PM CDT BASIC METABOLIC PANEL STAT 09/18/2017 2:02 PM CDT HC COMPLETE BLD COUNT STAT 09/18/2017 W/AUTO DIFF 2:02 PM CDT ZZESTIMATED GFR Timed 09/16/2017 5:58 AM CDT PHOSPHORUS LEVEL Timed 09/16/2017 5:58 AM CDT MAGNESIUM LEVEL Timed 09/16/2017 5:58 AM CDT HC COMPLETE BLD COUNT Timed 09/16/2017 W/AUTO DIFF 5:58 AM CDT BASIC METABOLIC PANEL Timed 09/16/2017 5:58 AM CDT ZZESTIMATED GFR Timed 09/15/2017 6:10 AM CDT PHOSPHORUS LEVEL Timed 09/15/2017 6:10 AM CDT MAGNESIUM LEVEL Timed 09/15/2017 6:10 AM CDT HC COMPLETE BLD COUNT Timed 09/15/2017 W/AUTO DIFF 6:10 AM CDT BASIC METABOLIC PANEL Timed 09/15/2017 6:10 AM CDT FL UGI W AIR HD BA AND STAT 09/14/2017 SMALL BOWEL 2:42 PM CDT ZZESTIMATED GFR Timed 09/14/2017 6:48 AM CDT PHOSPHORUS LEVEL Timed 09/14/2017 6:48 AM CDT MAGNESIUM LEVEL Timed 09/14/2017 6:48 AM CDT HC COMPLETE BLD COUNT Timed 09/14/2017 W/AUTO DIFF 6:48 AM CDT BASIC METABOLIC PANEL Timed 09/14/2017 6:48 AM CDT URINALYSIS SCREEN AND Routine 09/13/2017 MICROSCOPY, WITH REFLEX 5:14 PM CDT TO CULTURE SODIUM LEVEL, URINE, Routine 09/13/2017 RANDOM 5:14 PM CDT PROTEIN, URINE, RANDOM Routine 09/13/2017 5:14 PM CDT POTASSIUM, URINE, RANDOM Routine 09/13/2017 5:14 PM CDT CREATININE LEVEL, URINE, Routine 09/13/2017 RANDOM 5:14 PM CDT GRAM STAIN Routine 09/13/2017 5:14 PM CDT URINE CULTURE Routine 09/13/2017 5:14 PM CDT XR CHEST 1 VW PORTABLE STAT 09/12/2017 11:40 PM CDT BLOOD CULTURE, AEROBIC & Routine 09/12/2017 ANAEROBIC 9:10 PM CDT LACTIC ACID LEVEL, SEPSIS Timed 09/12/2017 - NOW AND REPEAT 2X EVERY 9:00 PM CDT 3 HOURS BLOOD CULTURE, AEROBIC & Routine 09/12/2017 ANAEROBIC 9:00 PM CDT PARTIAL THROMBOPLASTIN STAT 09/12/2017 TIME (PTT) 7:45 PM CDT PROTHROMBIN TIME WITH INR STAT 09/12/2017 7:45 PM CDT ZZESTIMATED GFR STAT 09/12/2017 7:45 PM CDT B NATRIURETIC PEPTIDE STAT 09/12/2017 7:45 PM CDT TROPONIN STAT 09/12/2017 7:45 PM CDT COMPREHENSIVE METABOLIC STAT 09/12/2017 PANEL 7:45 PM CDT HC COMPLETE BLD COUNT STAT 09/12/2017 W/AUTO DIFF 7:45 PM CDT ECG ED PRELIMINARY Routine 09/12/2017 INTERPRETATION 7:22 PM CDT NV CRITICAL CARE, E/M Routine 09/12/2017 30-74 MINUTES 7:22 PM CDT POC GLUCOSE Routine 09/12/2017 7:14 PM CDT ECG 12-LEAD STAT 09/12/2017 7:06 PM CDT ZZESTIMATED GFR Routine 09/10/2017 10:38 AM CDT BASIC METABOLIC PANEL Routine 09/10/2017 10:38 AM CDT HC COMPLETE BLD COUNT Routine 09/10/2017 W/AUTO DIFF 10:38 AM CDT SURGICAL PATHOLOGY Routine 09/09/2017 REQUEST 12:57 PM CDT COLONOSCOPY 09/09/2017 Gastrointestinal 12:45 PM CDT hemorrhage with melena SURGICAL PATHOLOGY Routine 09/08/2017 REQUEST 1:06 PM CDT EGD WITH BIOPSY 09/08/2017 Gastrointestinal 11:45 AM CDT hemorrhage, unspecified gastrointestinal hemorrhage type ZZESTIMATED GFR Routine 09/08/2017 5:52 AM CDT PROTHROMBIN TIME WITH INR Routine 09/08/2017 5:52 AM CDT BASIC METABOLIC PANEL Routine 09/08/2017 5:52 AM CDT HC COMPLETE BLD COUNT Routine 09/08/2017 W/AUTO DIFF 5:52 AM CDT HC COMPLETE BLD COUNT STAT 09/07/2017 W/AUTO DIFF 1:59 PM CDT HEMOGLOBIN & HEMATOCRIT Routine 09/07/2017 11:24 AM CDT TRANSFUSE RED BLOOD CELLS STAT 09/07/2017 3:41 AM CDT TRANSFUSE RED BLOOD CELLS STAT 09/06/2017 11:59 PM CDT TROPONIN Timed 09/06/2017 5:35 PM CDT BLOOD CULTURE, AEROBIC & Routine 09/06/2017 ANAEROBIC 2:10 PM CDT XR CHEST 1 VW PORTABLE STAT 09/06/2017 1:58 PM CDT PREPARE RBC Timed 09/06/2017 1:57 PM CDT MANUAL DIFFERENTIAL STAT 09/06/2017 1:57 PM CDT ZZESTIMATED GFR STAT 09/06/2017 1:57 PM CDT B NATRIURETIC PEPTIDE STAT 09/06/2017 1:57 PM CDT TROPONIN STAT 09/06/2017 1:57 PM CDT CREATINE KINASE, TOTAL STAT 09/06/2017 (CPK) 1:57 PM CDT HEPATIC FUNCTION PANEL STAT 09/06/2017 1:57 PM CDT BASIC METABOLIC PANEL STAT 09/06/2017 1:57 PM CDT TYPE AND SCREEN Timed 09/06/2017 1:57 PM CDT PARTIAL THROMBOPLASTIN STAT 09/06/2017 TIME (PTT) 1:57 PM CDT PROTHROMBIN TIME WITH INR STAT 09/06/2017 1:57 PM CDT CBC WITH PLATELET AND STAT 09/06/2017 DIFFERENTIAL 1:57 PM CDT BLOOD CULTURE, AEROBIC & Routine 09/06/2017 ANAEROBIC 1:57 PM CDT ECG 12-LEAD STAT 09/06/2017 1:42 PM CDT URINALYSIS SCREEN AND STAT 09/06/2017 MICROSCOPY, WITH REFLEX 1:38 PM CDT TO CULTURE URINE CULTURE STAT 09/06/2017 1:38 PM CDT ECG ED PRELIMINARY Routine 09/06/2017 INTERPRETATION 1:19 PM CDT NV CRITICAL CARE, E/M Routine 09/06/2017 30-74 MINUTES 1:19 PM CDT US DUPLEX VENOUS LOWER STAT 08/22/2017 EXTREMITY BILATERAL 11:[address] ABDOMEN PELVIS WO STAT 08/22/2017 CONTRAST 9:30 PM CDT PROTHROMBIN TIME WITH INR STAT 08/22/2017 10:17 AM CDT URINALYSIS SCREEN AND Routine 08/22/2017 MICROSCOPY, WITH REFLEX 7:36 AM CDT TO CULTURE URINE CULTURE Routine 08/22/2017 7:[address] HEAD WO CONTRAST STAT 08/21/2017 6:58 PM CDT ECG ED PRELIMINARY Routine 08/21/2017 INTERPRETATION 6:20 PM CDT XR CHEST 2 VW STAT 08/21/2017 4:00 PM CDT PARTIAL THROMBOPLASTIN STAT 08/21/2017 TIME (PTT) 3:18 PM CDT PROTHROMBIN TIME WITH INR STAT 08/21/2017 3:18 PM CDT ZZESTIMATED GFR STAT 08/21/2017 3:18 PM CDT B NATRIURETIC PEPTIDE STAT 08/21/2017 3:18 PM CDT TROPONIN STAT 08/21/2017 3:18 PM CDT COMPREHENSIVE METABOLIC STAT 08/21/2017 PANEL 3:18 PM CDT HC COMPLETE BLD COUNT STAT 08/21/2017 W/AUTO DIFF 3:18 PM CDT ECG 12-LEAD STAT 08/21/2017 3:14 PM CDT PROTHROMBIN TIME WITH INR Routine 08/13/2017 12:10 PM CDT PROTHROMBIN TIME WITH INR Routine 07/10/2017 10:39 AM CDT CBC WITH PLATELET AND Routine 07/10/2017 Other iron deficiency DIFFERENTIAL 10:39 AM CDT anemia after 07/08/2017 Results * Troponin (07/02/2018 5:23 PM CDT) Only the most recent of 17 results within the time period is included. Troponin <0.30 0.00 - 0.30 ng/mL [facility] Comment: [facility] 0.11 - 1.49 ng/mlMay indicate increased risk of acute coronary syndrome. >=1.5 ng/ml Consistent with acute myocardial infarction. The diagnostic value of a single normal or non-diagnostic result is questionable.Serial samples at 2-6 hour intervals are required to rule out acute myocardial injury. Specimen Plasma specimen Performing Organization Address City/[facility]/Zipcode Phone Number [facility] DEPARTMENT OF [address] [place] [phone] PATHOLOGY AND GENOMIC MEDICINE [id number] [place] [address] * XR Chest 1 Vw Portable (07/02/2018 2:43 PM CDT) Only the most recent of 6 results within the time period is included. Narrative Performed At EXAMINATION:XR CHEST 1 VW PORTABLE [facility] CLINICAL HISTORY:chf COMPARISON:Most recent H prior. IMPRESSION: There is cardiomegaly and pulmonary vascular congestion. [id number] Procedure Note Hm Interface, Radiology Results Incoming - 07/02/2018 3:08 PM CDT EXAMINATION: XR CHEST 1 VW PORTABLE CLINICAL HISTORY: chf COMPARISON: Most recent H prior. IMPRESSION: There is cardiomegaly and pulmonary vascular congestion. [id number] Performing Organization Address City/[facility]/Zipcode Phone Number [facility] [address] [place] [address] * Smear review (07/02/2018 1:59 PM CDT) Only the most recent of 4 results within the time period is included. Platelet slide review Naty adequate [facility] Anisocytosis 1+ [facility] Schistocytes Occasional [facility] Ovalocytes 1+ [facility] Alise cells 1+ [facility] Elliptocytes Occasional [facility] Performing Organization Address City/State/Zipcode Phone Number [facility] DEPARTMENT OF [address] [phone] PATHOLOGY AND GENOMIC MEDICINE [facility] [address] * Estimated GFR (07/02/2018 1:59 PM CDT) Only the most recent of 4 results within the time period is included. Estimated GFR 33 (A) mL/min/1.73 m2 [facility] Comment: [facility] CatergoryUnitsInte rpretation G1 >=90 Normal or high G2 60-89Mildly decreased [id number] Mildly to moderately decreased [id number] Moderately to severely decreased G4 15-29Severely decreased G5 <15Kidney failure The eGFR was calculated using the Chronic Kidney Disease Epidemiology Collaboration (CKD-EPI) equation. Interpretation is based on recommendations of the National Kidney Foundation-Kidney Disease Outcomes Quality Initiative (NKF-KDOQI) published in 2014. Specimen Plasma specimen Performing Organization Address City/[facility]/Zipcode Phone Number [facility] [address] [place] [address] PATHOLOGY AND GENOMIC MEDICINE [facility] [address] * Partial thromboplastin time, activated (07/02/2018 1:59 PM CDT) Only the most recent of 5 results within the time period is included. PTT 30.1 23.0 - 36.0 sec [facility] Comment: [facility] PTT therapeutic range for unfractionated heparin is 61.0-112.0 seconds which corresponds to Anti-Xa 0.3-0.7 U/ml. Note:Change in Panic Value The PTT Panic Value is changing from 110 sec. to 100 sec. due to new instrumentation and reagents. Correlation studies have been performed to validate this result. Specimen Blood Performing Organization Address City/State/Zipcode Phone Number [facility] [address] [phone] PATHOLOGY AND GENOMIC MEDICINE [facility] [address] * Prothrombin time with INR (07/02/2018 1:59 PM CDT) Only the most recent of 13 results within the time period is included. Prothrombin time 13.7 11.5 - 14.5 sec [facility] INR 1.08 [facility] Comment: [facility] For patients on anticoagulant therapy, reference ranges below: Indication: INR Value Treatment of Venous Thrombosis, 2.0-3.0 pulmonary emboli, or prophylaxis of a venous thrombosis, or systemic emboli. High dose, high risk patients 3.0-4.5 with mechanical valves. NOTE:INR values over 3.0 are sometimes associated with gastrointestinal hemorrhage, especially values over 4.0. Specimen Blood Performing Organization Address City/State/Zipcode Phone Number [facility] DEPARTMENT OF [address] [place] [address] PATHOLOGY AND GENOMIC MEDICINE [place] [phone] [place], [place] [phone] [place] [address] * CBC with platelet and differential (07/02/2018 1:59 PM CDT) Only the most recent of 18 results within the time period is included. WBC 8.7 4.2 - 11.0 k/uL [facility] RBC 2.85 (L) 4.04 - 5.86 m/uL [facility] HGB 9.2 (L) 11.5 - 15.3 g/dL [facility] HCT 29.7 (L) 34.0 - 45.0 % [facility] MCV 104.2 (H) 80.0 - 98.0 fL [facility] MCH 32.3 27.0 - 34.0 pg [facility] MCHC 31.0 (L) 31.5 - 36.5 g/dL [facility] RDW - SD 100.6 (H) 37.0 - 51.0 fL [facility] MPV 10.4 7.4 - 10.4 fL [facility] Platelet count 233 150 - 400 k/uL [facility] Nucleated RBC 0.00 /100 WBC [facility] Neutrophils 90.9 (H) 36.0 - 66.0 % [facility] Lymphocytes 5.0 (L) 24.0 - 44.0 % [facility] Monocytes 2.5 0.0 - 6.0 % [facility] Eosinophils 0.6 0.0 - 6.0 % [facility] Basophils 0.2 0.0 - 1.2 % [facility] Immature granulocytes 0.8 0.0 - 1.0 % [facility] Specimen Blood Performing Organization Address [facility] [place] [address] PATHOLOGY AND GENOMIC MEDICINE [address] * B natriuretic peptide (07/02/2018 1:59 PM CDT) Only the most recent of 7 results within the time period is included. BNP 393 (H) 0 - 100 pg/mL [facility] Specimen Blood Performing Organization Address City/[facility] [place] [address] PATHOLOGY AND GENOMIC MEDICINE [address] * Creatine kinase, total (CPK) (07/02/2018 1:59 PM CDT) Only the most recent of 3 results within the time period is included. Creatine kinase 169 26 - 192 U/L [facility] Specimen Plasma specimen Performing Organization Address [facility] [place] [address] PATHOLOGY AND GENOMIC MEDICINE [address] * Comprehensive metabolic panel (07/02/2018 1:59 PM CDT) Only the most recent of 4 results within the time period is included. Sodium 139 135 - 150 mEq/L [facility] Potassium 3.9 3.5 - 5.0 mEq/L [facility] Chloride 103 98 - 112 mEq/L [facility] CO2 24 24 - 31 mmol/L [facility] Anion gap 12@ANIO 7 - 15 mEq/L [facility] BUN 26 (H) 7 - 18 mg/dL [facility] Creatinine 1.50 (H) 0.50 - 0.90 mg/dL [facility] Glucose 131 (H) 65 - 100 mg/dL [facility] Calcium 8.7 (L) 8.8 - 10.2 mg/dL [facility] Protein 6.1 (L) 6.3 - 8.3 g/dL [facility] Albumin 3.2 (L) 3.5 - 5.0 g/dL [facility] A/G ratio 1.1 0.7 - 3.8 [facility] Alkaline phosphatase 79 0 - 104 U/L [facility] AST 22 10 - 35 U/L [facility] ALT 15 5 - 50 U/L [facility] Total bilirubin 0.5 0.2 - 1.2 mg/dL [facility] [facility] Specimen Plasma specimen Performing Organization Address [facility]/State/Zipcode Phone Number [facility] DEPARTMENT OF [facility] [place] [address] PATHOLOGY AND GENOMIC MEDICINE [place] [id number] * ECG 12 lead (07/02/2018 1:50 PM CDT) Only the most recent of 7 results within the time period is included. Ventricular rate 80 [facility] Atrial rate 80 [facility] NV interval 130 [facility] QRSD interval 90 [facility] QT interval 418 [facility] QTC interval 482 [facility] P axis 1 56 [facility] QRS axis 1 -21 [facility] T wave axis 54 [facility] EKG impression Sinus rhythm NS atrial [facility] tach-Minimal voltage criteria for LVH, may be normal variant-Borderline ECG-In automated comparison with ECG of 30-APR-2018 19:36,-No significant change was found- Narrative Performed At Performing Organization Address City/State/Zipcode Phone Number [facility] MUSE [address] [place] [address] * ECG ED Preliminary Interpretation - Not an Order (07/02/2018 1:38 PM CDT) Only the most recent of 7 results within the time period is included. Narrative Performed At Javy Tarango MD 07/02/20185:59 PM ECG ED Preliminary Interpretation - Not an Order Performed by: Javy Tarango MD Authorized by: Javy Tarango MD ECG reviewed by ED Physician in the absence of a track template maker: yes Interpretation: Interpretation: abnormal Rate: ECG rate:80 ECG rate assessment: normal Rhythm: Rhythm comment:Irregular rhythm Ectopy: Ectopy: none QRS: QRS axis:Normal QRS intervals:Normal Conduction: Conduction: normal ST segments: ST segments:Normal T waves: T waves: normal Q waves: Q waves:III and aVF * Us duplex venous lower extremity (06/21/2018 5:51 PM CDT) Only the most recent of 2 results within the time period is included. Narrative Performed At EXAMINATION:US DUPLEX VENOUS LOWER EXTREMITY BILATERAL [facility] CLINICAL HISTORY: 78 years 1940R60.0 Localized edema, EDEMA LOWER EXTREMITY COMPARISON:None. TECHNIQUE:Grayscale, color Doppler and spectral waveform analysis of the bilateral lower extremity deep venous systems. FINDINGS: The bilateral common femoral, femoral, deep femoral, and popliteal veins are compressible and appear patent. Flow is identified within the visualized deep veins of the bilateral calves. Flow is identified within the visualized segments of the bilateral great saphenous veins. IMPRESSION: No definite evidence of deep venous thrombosis in either lower extremity. [facility]-[id number] Procedure Note Interface, Radiology Results Incoming - 06/21/2018 6:00 PM CDT EXAMINATION: US DUPLEX VENOUS LOWER EXTREMITY BILATERAL CLINICAL HISTORY: 78 years 1940 R60.0 Localized edema, EDEMA LOWER EXTREMITY COMPARISON: None. TECHNIQUE: Grayscale, color Doppler and spectral waveform analysis of the bilateral lower extremity deep venous systems. FINDINGS: The bilateral common femoral, femoral, deep femoral, and popliteal veins are compressible and appear patent. Flow is identified within the visualized deep veins of the bilateral calves. Flow is identified within the visualized segments of the bilateral great saphenous veins. IMPRESSION: No definite evidence of deep venous thrombosis in either lower extremity. [facility]-[id number] Performing Organization Address City/[facility]/[place] [address] * Aerobic culture (06/09/2018 3:40 PM MASONRY INSTALLER) Aerobic culture isolate Corynebacterium striatum [facility] HOSPITAL identification to follow (A) Comment: Specimen Information Specimen Source: Wound Specimen Site: Buttock Specimen Wound Performing Organization Address City/[facility] Phone Number [facility] DEPARTMENT OF [address] [place] [address] PATHOLOGY AND GENOMIC MEDICINE [address] * Gram stain (06/09/2018 3:40 PM MASONRY INSTALLER) Only the most recent of 2 results within the time period is included. Gram stain isolate Rare WBC's [facility] Gram positive cocci HOSPITAL in [facility] Comment: Specimen Information Specimen Source: Wound Specimen Site: Buttock Specimen Wound Performing Organization Address [facility] Phone Number [facility] DEPARTMENT OF [address] [place] [address] PATHOLOGY AND GENOMIC MEDICINE [address] * Anaerobic culture (06/09/2018 2:40 PM MASONRY INSTALLER) Anaerobic culture isolate No anaerobic organisms [facility] isolated. HOSPITAL Comment: Specimen Information Specimen Source: Wound Specimen Site: Buttock Specimen Wound Performing Organization Address [facility] Phone Number [facility] DEPARTMENT OF [address] [place] [address] PATHOLOGY AND GENOMIC MEDICINE [address] * Basic metabolic panel (05/02/2018 5:26 AM MASONRY INSTALLER) Only the most recent of 10 results within the time period is included. Sodium 132 (L) 135 - 150 mEq/L [facility] Potassium 4.2 3.5 - 5.0 mEq/L [facility] Chloride 91 (L) 98 - 112 mEq/L [facility] CO2 24 24 - 31 mmol/L [facility] Anion gap 17@ANIO (H) 7 - 15 mEq/L [facility] BUN 28 (H) 7 - 18 mg/dL [facility] Creatinine 1.40 (H) 0.50 - 0.90 mg/dL [facility] Glucose 225 (H) 65 - 100 mg/dL [facility] Calcium 9.0 8.8 - 10.2 mg/dL [facility] Specimen Plasma specimen Performing Organization Address City/State/Zipcode Phone Number [facility] DEPARTMENT OF [address] [place] [address] PATHOLOGY AND GENOMIC MEDICINE [facility] [address] [place], [place] [id number] [place] [address] * CT Angiogram Pe Chest (05/01/2018 5:29 PM MASONRY INSTALLER) Narrative Performed At EXAMINATION: [facility] CT ANGIOGRAM PE CHEST CLINICAL HISTORY: Shortness of breath TECHNIQUE:CT angiographic images of the chest were obtained during intravenous administration of iodinated contrast. Computerized reformatted images and 3-D MIP images were also obtained and archived (CT pulmonary embolus protocol). Scan was performed using radiation dose reduction techniques. COMPARISON: August 02, 2015 FINDINGS: Pulmonary arterial enhancement is technically adequate. There is no pulmonary embolism. Dependent, basilar small mucoid impactions and mild thickening are noted in the distal airways in the lower lobes associated with some atelectasis. No confluent consolidation. Lungs otherwise demonstrate moderate emphysema, upper lobe predominant. No pleural or pericardial effusion. Marked coronary, aortic, and mitral annular calcifications. Aorta is nonaneurysmal. Multiple subcentimeter hypodense lesions in the kidneys are mostly too small to characterize but statistically likely benign cysts. Osseous structures are intact. IMPRESSION: 1.No pulmonary embolism. 2.Mild basilar bronchitis and small bronchiolar impactions in the lower lobes. No confluent consolidation. 3.Pulmonary emphysema. [facility]-[id number] Procedure Note Interface, Radiology Results Incoming - 05/01/2018 5:40 PM MASONRY INSTALLER EXAMINATION: CT ANGIOGRAM PE CHEST CLINICAL HISTORY: Shortness of breath TECHNIQUE: CT angiographic images of the chest were obtained during intravenous administration of iodinated contrast. Computerized reformatted images and 3-D MIP images were also obtained and archived (CT pulmonary embolus protocol). Scan was performed using radiation dose reduction techniques. COMPARISON: August 02, 2015 FINDINGS: Pulmonary arterial enhancement is technically adequate. There is no pulmonary embolism. Dependent, basilar small mucoid impactions and mild thickening are noted in the distal airways in the lower lobes associated with some atelectasis. No confluent consolidation. Lungs otherwise demonstrate moderate emphysema, upper lobe predominant. No pleural or pericardial effusion. Marked coronary, aortic, and mitral annular calcifications. Aorta is nonaneurysmal. Multiple subcentimeter hypodense lesions in the kidneys are mostly too small to characterize but statistically likely benign cysts. Osseous structures are intact. IMPRESSION: 1. No pulmonary embolism. 2. Mild basilar bronchitis and small bronchiolar impactions in the lower lobes. No confluent consolidation. 3. Pulmonary emphysema. [facility]-[id number] Performing Organization Address City/[facility]/[place] [address] * Lactic acid level, SEPSIS - Now and repeat 2x every 3 hours (05/01/2018 5:25 AM MASONRY INSTALLER) Only the most recent of 6 results within the time period is included. Lactic acid 1.5 0.5 - 2.2 mmol/L [facility] Specimen Blood Performing Organization Address City/[facility]/Zipcode Phone Number [facility] DEPARTMENT OF [address] [place] [address] PATHOLOGY AND GENOMIC MEDICINE [address] * Blood culture, aerobic & anaerobic (04/30/2018 8:03 PM MASONRY INSTALLER) Only the most recent of 8 results within the time period is included. Blood culture isolate No growth after 5 days of [facility] incubation. HOSPITAL Comment: Specimen Information Specimen Source: Blood Specimen Site: rt hand Specimen Blood Performing Organization Address [facility] Phone Number [address] [address] PATHOLOGY AND GENOMIC MEDICINE [address] * Hepatic function panel (04/30/2018 7:50 PM MASONRY INSTALLER) Only the most recent of 3 results within the time period is included. Albumin 3.0 (L) 3.5 - 5.0 g/dL [facility] Total bilirubin <0.3 0.2 - 1.2 mg/dL [facility] Bilirubin direct <0.2 0.0 - 0.4 mg/dL [facility] Alkaline phosphatase 79 0 - 104 U/L [facility] Protein 5.8 (L) 6.3 - 8.3 g/dL [facility] ALT 16 5 - 50 U/L [facility] AST 15 10 - 35 U/L [facility] Specimen Plasma specimen Performing Organization Address City/State/Zipcode Phone Number [facility] DEPARTMENT OF [address] [place] [address] PATHOLOGY AND GENOMIC MEDICINE [place] [id number] [place], [place] [id number] [place] [address] * Echocardiogram complete w contrast and 3D if needed (12/19/2017 4:50 PM CDT) Velocity Ratio (V1/V2) 0.33 m/s [facility] IVS,d 1.07 cm [facility] EF 58.79 % [facility] Ascending aorta 3.50 cm [facility] LVPWD,d 1.10 cm [facility] AoV Mean PG 28.84 mmHg [facility] AV LVOT peak gradient 6.77 mmHg [facility] MV mean gradient 3.79 mmHg [facility] MV valve area p 1/2 2.77 cm2 [facility] method PV Pk Grad 4.37 mmHg [facility] E/A ratio 1.05 [facility] E wave decelartion time 273.92 msec [facility] LVOT Diam,S 1.88 cm [facility] LVOT area 2.77 cm2 [facility] LVOT Vmax 1.33 m/s [facility] LVOT VTI 0.29 m [facility] AoV Peak PG 33.04 mmHg [facility] MV Peak E Harish 1.39 m/s [facility] MV stenosis pressure 1/2 79.44 ms [facility] time MV Peak A Harish 1.33 m/s [facility] Ao Root Diameter 3.01 cm [facility] AoV Area, Vmax 1.26 cm2 [facility] AoV Area, VTI 1.04 cm2 [facility] AoV Vmax 4.09 m/s [facility] IVS/LVPW,2D 0.97 [facility] Left Atrium Dimension 3.82 cm [facility] Anterior LV,d 4.51 cm [facility] LV,s 3.12 cm [facility] PV VMAX 1.05 m/s [facility] TR Vpeak 2.90 mm/s [facility] MV E A ratio 1.05 mmHg [facility] TR pk grad 25.71 mmHg [facility] MR peak grad 8.98 mmHg [facility] Ao Root Diameter 3.01 cm [facility] AR Press Half Time 226.46 ms [facility] LV SYS VOL 38.38 ml [facility] LV HU VOL 93.13 ml [facility] LV SV Teich 2D 54.76 ml [facility] LV Vol s Teich PSAX 38.38 ml [facility] LVOT CO 5.74 l/min [facility] LVOT HR for LVOT CO 71.74 bpm [facility] MV Vmax 1.57 m [facility] MV VTI Tips 0.43 m [facility] AoV Vmn 2.59 [facility] AR slope 4.18 [facility] Ar Vmax 3.27 [facility] IVS s 2D 1.37 [facility] LV FS Cube 2D 30.99 [facility] LV FS Teich 2D 30.99 [facility] AoV VTI 0.78 m [facility] LV EF,2D 67.13 % [facility] MV AE ratio 0.95 [facility] LVOT Vmn 1.01 [facility] Aov area Vmn 1.15 cm2 [facility] LVOT mean grad 4.48 mmHg [facility] MAX Pred HR 141.15 [facility] 85 of MPHR 119.97 [facility] AR DT 780.90 msec [facility] AR pk grad 42.68 mmHg [facility] Calc MPHR 141.15 bpm [facility] IVS pct thck PLAX 27.77 % [facility] LV SV Cube 2D 61.76 ml [facility] LV vol d cube 2D 91.99 ml [facility] LV vol s cube 2D 30.24 ml [facility] LVPW pct thck PLAX 40.58 % [facility] LVPW s PLAX 1.55 cm [facility] MV Decel slope 5.08 m/s2 [facility] Pred Exer Dur R1 5.87 [facility] Pred METS R1 4.45 [facility] Narrative Performed At [facility] Moderate aortic valve stenosis. The left ventricle chamber size is normal. Left Ventricular ejection fraction is 55 - 60%. Mild mitral annular calcification. The aortic valve appears moderately calcified. Moderate aortic valve stenosis. Aortic valve peak vel3.47 Peak/mean 50/26Mm hg Performing Organization Address City/State/Zipcode Phone Number [facility] [address] [place] [address] * Hemoglobin & hematocrit (12/19/2017 11:20 AM CDT) Only the most recent of 2 results within the time period is included. HGB 9.7 (L)Comment: Patient 11.5 - 15.3 g/dL [facility] DEPARTMENT OF received PRBC PATHOLOGY AND GENOMIC MEDICINE HCT 30.1 (L) 34.0 - 45.0 % [facility] DEPARTMENT OF PATHOLOGY AND GENOMIC MEDICINE Specimen Blood Performing Organization Address City/[facility]/Zipcode Phone Number [place] [address] [address] [address] PATHOLOGY AND GENOMIC MEDICINE * Transfuse RBC (12/19/2017 9:39 AM CDT) Only the most recent of 3 results within the time period is included. * CRITICAL CARE (12/19/2017 3:43 AM CDT) Narrative Performed At Anil Juarez MD 12/19/20173:44 AM Critical Care Performed by: ANIL JUAREZ Authorized by: ANIL JUAREZ Critical care provider statement: Critical care time (minutes):33 Critical care start time:12/18/2017 9:00 PM Critical care end time:12/19/2017 12:00 AM Critical care time was exclusive of:Separately billable procedures and treating other patients and teaching time Critical care was necessary to treat or prevent imminent or life-threatening deterioration of the following conditions:Circulatory failure and shock Critical care was time spent personally by me on the following activities:Blood draw for specimens, development of treatment plan with patient or surrogate, evaluation of patient's response to treatment, examination of patient, discussions with primary provider, obtaining history from patient or surrogate, ordering and performing treatments and interventions, ordering and review of laboratory studies, pulse oximetry and re-evaluation of patient's condition Rohit 'yes' if you are taking over critical care for this patient from another provider.: no * Prepare RBC, 2 Units (12/19/2017 12:37 AM CDT) Only the most recent of 2 results within the time period is included. Product name Red Blood Cells -1, Leukored [facility] DEPARTMENT OF PATHOLOGY AND GENOMIC MEDICINE Unit number [id number] [facility] DEPARTMENT OF PATHOLOGY AND GENOMIC MEDICINE Product code [id number] [facility] DEPARTMENT OF PATHOLOGY AND GENOMIC MEDICINE Dispense status Transfused [facility] DEPARTMENT OF PATHOLOGY AND GENOMIC MEDICINE Blood expiration date [facility] DEPARTMENT OF PATHOLOGY AND GENOMIC MEDICINE Blood type code 6200 [facility] DEPARTMENT OF PATHOLOGY AND GENOMIC MEDICINE Blood type A POSITIVE [facility] DEPARTMENT OF PATHOLOGY AND GENOMIC MEDICINE Product name Red Blood Cells -1, Leukored [facility] DEPARTMENT OF PATHOLOGY AND GENOMIC MEDICINE Unit number [id number] [facility] DEPARTMENT OF PATHOLOGY AND GENOMIC MEDICINE Product code [id number] [facility] DEPARTMENT OF PATHOLOGY AND GENOMIC MEDICINE Dispense status Transfused [facility] DEPARTMENT OF PATHOLOGY AND GENOMIC MEDICINE Blood expiration date [facility] DEPARTMENT OF PATHOLOGY AND GENOMIC MEDICINE Blood type code 6200 [facility] DEPARTMENT OF PATHOLOGY AND GENOMIC MEDICINE Blood type A POSITIVE [facility] DEPARTMENT OF PATHOLOGY AND GENOMIC MEDICINE Performing Organization Address [facility] [place] [address] PATHOLOGY AND GENOMIC MEDICINE * Type and screen (12/19/2017 12:37 AM CDT) Only the most recent of 2 results within the time period is included. ABO grouping A [facility] DEPARTMENT OF PATHOLOGY AND GENOMIC MEDICINE Rh type POS [facility] DEPARTMENT OF PATHOLOGY AND GENOMIC MEDICINE Antibody screen (gel) NEG [facility] DEPARTMENT OF PATHOLOGY AND GENOMIC MEDICINE Specimen Blood Performing Organization Address [facility] [place] [address] PATHOLOGY AND GENOMIC MEDICINE * Urinalysis screen and microscopy, with reflex to culture (12/19/2017 12:06 AM CDT) Only the most recent of 4 results within the time period is included. Specimen site Clean catch [facility] DEPARTMENT OF PATHOLOGY AND GENOMIC MEDICINE Color, UA Straw [facility] DEPARTMENT OF PATHOLOGY AND GENOMIC MEDICINE Appearance, UA Clear [facility] DEPARTMENT OF PATHOLOGY AND GENOMIC MEDICINE Specific gravity, UA 1.005 1.001 - 1.035 [facility] DEPARTMENT OF PATHOLOGY AND GENOMIC MEDICINE pH, UA 5.0 5.0 - 8.5 [facility] DEPARTMENT OF PATHOLOGY AND GENOMIC MEDICINE Protein, UA Negative Negative [facility] DEPARTMENT OF PATHOLOGY AND GENOMIC MEDICINE Glucose, UA Negative Negative [facility] DEPARTMENT OF PATHOLOGY AND GENOMIC MEDICINE Ketones, UA Negative Negative [facility] DEPARTMENT OF PATHOLOGY AND GENOMIC MEDICINE Bilirubin, UA Negative Negative [facility] DEPARTMENT OF PATHOLOGY AND GENOMIC MEDICINE Blood, UA Negative Negative [facility] DEPARTMENT OF PATHOLOGY AND GENOMIC MEDICINE Nitrite, UA Negative Negative [facility] DEPARTMENT OF PATHOLOGY AND GENOMIC MEDICINE Urobilinogen, UA Negative <2.0 [facility] DEPARTMENT OF PATHOLOGY AND GENOMIC MEDICINE Leukocyte esterase, UA Negative Negative [facility] DEPARTMENT OF PATHOLOGY AND GENOMIC MEDICINE WBC, UA None seen 0 - 5 /HPF [facility] DEPARTMENT OF PATHOLOGY AND GENOMIC MEDICINE RBC, UA <1 0 - 5 /HPF [facility] DEPARTMENT OF PATHOLOGY AND GENOMIC MEDICINE Bacteria, UA None seen None seen [facility] DEPARTMENT OF PATHOLOGY AND GENOMIC MEDICINE Yeast, UA None seen [facility] DEPARTMENT OF PATHOLOGY AND GENOMIC MEDICINE Yeast with pseudohyphae, None seen [facility] DEPARTMENT OF UA PATHOLOGY AND GENOMIC MEDICINE Hyaline casts, UA 4 /LPF [facility] DEPARTMENT OF PATHOLOGY AND GENOMIC MEDICINE Specimen Urine Performing Organization Address City/State/Zipcode Phone Number [address] [place] [address] PATHOLOGY AND GENOMIC MEDICINE * Urine culture (12/19/2017 12:00 AM CDT) Only the most recent of 4 results within the time period is included. Urine culture SEE COMMENTComment: [facility] DEPARTMENT OF Bacteriuria screen negative. PATHOLOGY AND GENOMIC MEDICINE Performing Organization Address City/[facility]/Zipcode Phone Number [address] [place] [address] PATHOLOGY AND GENOMIC MEDICINE * Occult blood, stool (12/18/2017 11:50 PM CDT) Occult blood, stool Negative for occult blood. [facility] DEPARTMENT OF Comment: PATHOLOGY AND Specimen Information GENOMIC MEDICINE Specimen Source: Stool Specimen Site: Not otherwise specified Specimen Stool - Not otherwise specified Performing Organization Address City/State/Zipcode Phone Number [facility] OF [address] [place] [address]. [place] [address] PATHOLOGY AND GENOMIC MEDICINE * Magnesium level (12/18/2017 10:49 PM CDT) Only the most recent of 4 results within the time period is included. Magnesium 2.40 1.60 - 2.40 mg/dL [facility] DEPARTMENT OF PATHOLOGY AND GENOMIC MEDICINE Specimen Plasma specimen Performing Organization Address City/[facility]/Zipcode Phone Number [address] [place] [address] PATHOLOGY AND GENOMIC MEDICINE * Lipase level (12/18/2017 10:49 PM CDT) Lipase 50 13 - 60 U/L [facility] DEPARTMENT OF PATHOLOGY AND GENOMIC MEDICINE Specimen Plasma specimen Performing Organization Address City/[facility] Phone Number [facility] [address] [place] [address] PATHOLOGY AND GENOMIC MEDICINE * XR Pelvis 3+ Vw (10/28/2017 2:31 PM CDT) Narrative Performed At EXAMINATION:XR PELVIS 3VW [facility] CLINICAL HISTORY: Arthritiship COMPARISON:July 20, 2012 FINDINGS: Degenerative changes in the hips and lower lumbar spine have increased since the prior study. No acute abnormality is identified. There is also diffuse increase in demineralization. IMPRESSION: As above [facility]-[id number] Procedure Note Hm Interface, Radiology Results Incoming - 10/28/2017 2:40 PM CDT EXAMINATION: XR PELVIS 3 VW CLINICAL HISTORY: Arthritis hip COMPARISON: July 20, 2012 FINDINGS: Degenerative changes in the hips and lower lumbar spine have increased since the prior study. No acute abnormality is identified. There is also diffuse increase in demineralization. IMPRESSION: As above [facility]-[id number] Performing Organization Address [facility] Phone Number [facility] [address] [place] [address] * Estimated GFR (10/28/2017 1:14 PM CDT) Only the most recent of 10 results within the time period is included. GFR Non Af Amer 26 (A) mL/min/1.73 m2 [facility] DEPARTMENT OF PATHOLOGY AND GENOMIC MEDICINE GFR Af Amer 31 (A) mL/min/1.73 m2 [facility] DEPARTMENT OF Comment: PATHOLOGY AND Chronic kidney disease: <60 GENOMIC MEDICINE mL/min/1.73m2 Kidney failure: <15 mL/min/1.73m2 The estimated GFR is calculated from the IDMS-traceable Modification of Diet in Renal Disease Equation. The accuracy of the calculation is poor when the creatinine is normal. Calculated values >90 mL/min/1.73m2 are not reported. This equation has not been validated in children (<18 years), women, the elderly (>70 years), or ethnic groups other than Caucasians and Americans. Specimen Plasma specimen Performing Organization Address City/[facility]/Zipcode Phone Number [facility] [address] [place] [address] PATHOLOGY AND GENOMIC MEDICINE * Total iron binding capacity (09/30/2017 10:13 AM CDT) Iron level 26 (L) 45 - 160 mcg/dL [place] [facility] Project Playlist [place] Iron binding capacity 393 250 - 450 mcg/dL (calc) [employer] [place] Iron saturation 7 (L) 11 - 50 % (calc) [employer] [place] Specimen Blood Narrative Performed At FASTING:NO QUEST FASTING: NO Resulting Agency Comment Performing Organization Information: Site ID: [id number] [facility] Address: [address] [place], [place] [id number] Director: Swetha Dasilva Performing Organization Address [facility] [place] [address] * Thyroid stimulating hormone (09/30/2017 10:13 AM CDT) TSH 1.57 0.40 - 4.50 mIU/L [facility] Project Playlist [place] Specimen Blood Narrative Performed At FASTING:NO QUEST FASTING: NO Resulting Agency Comment Performing Organization Information: Site ID: [id number] Name: [facility] Address: [address] [place] [address] Director: Swetha Dasilva Performing Organization Address [facility] [place] [address] * Ferritin level (09/30/2017 10:13 AM CDT) Ferritin level 12 (L) 20 - 288 ng/mL [facility] Project Playlist [place] Specimen Blood Narrative Performed At FASTING:NO QUEST FASTING: NO Resulting Agency Comment Performing Organization Information: Site ID: [id number] Name: [facility] Address: [address] [place] [address] Director: Swetha Dasilva Performing Organization Address [facility] Hospital[facility] [place] [address] * Phosphorus level (09/16/2017 5:58 AM CDT) Only the most recent of 3 results within the time period is included. Phosphorus 3.2 2.5 - 4.5 mg/dL [facility] DEPARTMENT OF PATHOLOGY AND GENOMIC MEDICINE Specimen Plasma specimen Performing Organization Address City/[facility] Phone Number [facility] DEPARTMENT OF [address] [place] [address] PATHOLOGY AND GENOMIC MEDICINE * FL UGI w Air HD BA and Small Bowel (09/14/2017 2:42 PM CDT) Narrative Performed At EXAMINATION:FL UGI W AIR HD BA AND SMALL BOWEL RADIANT CLINICAL HISTORY:anemia COMPARISON:None. TECHNIQUE:Limited upper GI series and small bowel follow-through was performed with effervescent granules and barium. The upper GI procedure was performed while patient in semiupright position. FLUOROSCOPIC TIME:1.8 minutes FINDINGS: 1.Esophagus:Esophagus was distensible. The mucosa and motility were within normal limits. There is no evidence of stricture. 2.Gastroesophageal junction:No evidence of hiatal hernia. Marked gastroesophageal reflux is seen. 3.Stomach:Normally distensible and demonstrates normal contours and mucosal pattern. 4.Duodenum:Bulb and sweep are normal. The duodenal-jejunal junction is in the normal expected position. 5.Small bowel follow-through:Small bowel loops are normal in caliber and distribution. Spot compression views of the terminal ileum are normal. Transit time was normal. IMPRESSION: Marked gastroesophageal reflux. Unremarkable upper GI and small bowel follow-through exam otherwise. [facility]-[id number] Procedure Note Interface, Radiology Results Incoming - 09/14/2017 4:36 PM CDT EXAMINATION: FL UGI W AIR HD BA AND SMALL BOWEL CLINICAL HISTORY: anemia COMPARISON: None. TECHNIQUE: Limited upper GI series and small bowel follow-through was performed with effervescent granules and barium. The upper GI procedure was performed while patient in semiupright position. FLUOROSCOPIC TIME: 1.8 minutes FINDINGS: 1. Esophagus: Esophagus was distensible. The mucosa and motility were within normal limits. There is no evidence of stricture. 2. Gastroesophageal junction: No evidence of hiatal hernia. Marked gastroesophageal reflux is seen. 3. Stomach: Normally distensible and demonstrates normal contours and mucosal pattern. 4. Duodenum: Bulb and sweep are normal. The duodenal-jejunal junction is in the normal expected position. 5. Small bowel follow-through: Small bowel loops are normal in caliber and distribution. Spot compression views of the terminal ileum are normal. Transit time was normal. IMPRESSION: Marked gastroesophageal reflux. Unremarkable upper GI and small bowel follow-through exam otherwise. [facility]-[id number] Performing Organization Address City/State/Zipcode Phone Number [facility] [address] [place] [address] * Sodium level, urine, random (09/13/2017 5:14 PM CDT) Sodium, urine, random 61 mEQ/L [facility] DEPARTMENT OF PATHOLOGY AND GENOMIC MEDICINE Specimen Urine - Urine, clean catch Performing Organization Address [facility] Phone Number [facility] DEPARTMENT [address] [place] [address] PATHOLOGY AND GENOMIC MEDICINE * Protein, urine, random (09/13/2017 5:14 PM CDT) Protein, urine random 14 mg/dL [facility] DEPARTMENT OF PATHOLOGY AND GENOMIC MEDICINE Specimen Urine - Urine, clean catch Performing Organization Address [facility] [place] [address] PATHOLOGY AND GENOMIC MEDICINE * Potassium, urine, random (09/13/2017 5:14 PM CDT) Potassium, urine, random 9 mEq/L [facility] DEPARTMENT OF PATHOLOGY AND GENOMIC MEDICINE Specimen Urine - Urine, clean catch Performing Organization Address [facility] [place] [address] PATHOLOGY AND GENOMIC MEDICINE * Creatinine level, urine, random (09/13/2017 5:14 PM CDT) Creatinine, urine, random 43 mg/dL [facility] DEPARTMENT OF PATHOLOGY AND GENOMIC MEDICINE Specimen Urine - Urine, clean catch Performing Organization Address [facility] [place] [address] PATHOLOGY AND GENOMIC MEDICINE * CRITICAL CARE (09/12/2017 7:22 PM CDT) Narrative Performed At Jessica Duncan MD 09/12/2017 11:51 PM Critical Care Performed by: JESSICA DUNCAN Authorized by: JESSICA DUNCAN Critical care provider statement: Critical care time (minutes):34 Critical care was necessary to treat or prevent imminent or life-threatening deterioration of the following conditions:Shock (gi bleeding) Critical care was time spent personally by me on the following activities:Development of treatment plan with patient or surrogate, discussions with consultants, discussions with primary provider, evaluation of patient's response to treatment, examination of patient, obtaining history from patient or surrogate, review of old charts, re-evaluation of patient's condition, pulse oximetry, ordering and review of laboratory studies, ordering and review of radiographic studies and ordering and performing treatments and interventions * POC glucose (09/12/2017 7:14 PM CDT) POC glucose 110 (H) 65 - 100 mg/dL [facility] DEPARTMENT OF Comment: PATHOLOGY AND Meter ID: [id number] GENOMIC MEDICINE Lawn Maintenance Worker: Gale Harrington Performing Organization Address City/[facility] Hospitalcoks Phone Number [address] [address] PATHOLOGY AND GENOMIC MEDICINE * Surgical pathology request (09/09/2017 12:57 PM CDT) Only the most recent of 2 results within the time period is included. [facility] DEPARTMENT OF PATHOLOGY AND GENOMIC MEDICINE Surgical pathology report See link below for PDF Lab [facility] DEPARTMENT OF Report PATHOLOGY AND GENOMIC MEDICINE Result status This is Final Report to [facility] [id number] PATHOLOGY AND GENOMIC MEDICINE Performing Organization Address [facility] Phone Number [address] [address] PATHOLOGY AND GENOMIC MEDICINE * Manual differential (09/06/2017 1:57 PM CDT) Manual differential PERFORMED [facility] DEPARTMENT OF PATHOLOGY AND GENOMIC MEDICINE Neutrophils 81.0 (H) 36.0 - 66.0 % [facility] DEPARTMENT OF PATHOLOGY AND GENOMIC MEDICINE Lymphocytes 16.0 (L) 24.0 - 44.0 % [facility] DEPARTMENT OF PATHOLOGY AND GENOMIC MEDICINE Monocytes 3.0 0.0 - 6.0 % [facility] DEPARTMENT OF PATHOLOGY AND GENOMIC MEDICINE Eosinophils 0.0 0.0 - 6.0 % [facility] DEPARTMENT OF PATHOLOGY AND GENOMIC MEDICINE Basophils 0.0 0.0 - 1.2 % [facility] DEPARTMENT OF PATHOLOGY AND GENOMIC MEDICINE Metamyelocytes 0 0 - 1 % [facility] DEPARTMENT OF PATHOLOGY AND GENOMIC MEDICINE Promyelocytes 0 0 - 1 % [facility] DEPARTMENT OF PATHOLOGY AND GENOMIC MEDICINE Platelet slide review Naty adequate [facility] DEPARTMENT OF PATHOLOGY AND GENOMIC MEDICINE Anisocytosis 1+ [facility] DEPARTMENT OF PATHOLOGY AND GENOMIC MEDICINE Ovalocytes 1+ [facility] DEPARTMENT OF PATHOLOGY AND GENOMIC MEDICINE Performing Organization Address City/[facility] Phone Number [place] [phone] PATHOLOGY AND GENOMIC MEDICINE * CRITICAL CARE (09/06/2017 1:19 PM CDT) Narrative Performed At Joel Stern MD 09/06/20173:44 PM Critical Care Performed by: JOEL STERN Authorized by: JOEL STERN Critical care provider statement: Critical care time (minutes):38 Critical care end time:09/06/2017 3:43 PM Critical care time was exclusive of:Separately billable procedures and treating other patients and teaching time Critical care was necessary to treat or prevent imminent or life-threatening deterioration of the following conditions: GIB, anemia. Critical care was time spent personally by me on the following activities:Ordering and performing treatments and interventions, ordering and review of laboratory studies, ordering and review of radiographic studies, pulse oximetry, re-evaluation of patient's condition, review of old charts, development of treatment plan with patient or surrogate, discussions with primary provider, examination of patient, obtaining history from patient or surrogate and interpretation of cardiac output measurements * CT Abdomen Pelvis Wo Contrast (08/22/2017 9:30 PM CDT) Narrative Performed At Examination:CT ABDOMEN PELVIS WO CONTRAST RADIANT Clinical History: abdominal pain Comparison: None. Findings: CT scans are performed using radiation dose reduction techniques.Technical factors are evaluated and adjusted to ensure appropriate moderation of exposure.Automated dose management technology is applied to adjust radiation exposure while achieving a diagnostic quality image. CT scan of the abdomen and pelvis was performed without intravenous contrast. The liver, spleen, pancreas, and adrenal glands are unremarkable. The patient is status post cholecystectomy. The kidneys are slightly atrophic. No hydronephrosis is seen. The sigmoid colon shows some scattered diverticuli. No bowel thickening or fat stranding is seen. No bowel dilatation is seen. The appendix is not visualized. No free air or fluid is seen. Urinary bladder is unremarkable. The visualized lung bases are clear. IMPRESSION: 1. Colonic diverticulosis without evidence of inflammation. 2. Otherwise no acute abnormality identified in the abdomen or pelvis. [id number] Procedure Note Hm Interface, Radiology Results Incoming - 08/22/2017 9:41 PM CDT Examination: CT ABDOMEN PELVIS WO CONTRAST Clinical History: abdominal pain Comparison: None. Findings: CT scans are performed using radiation dose reduction techniques. Technical factors are evaluated and adjusted to ensure appropriate moderation of exposure. Automated dose management technology is applied to adjust radiation exposure while achieving a diagnostic quality image. CT scan of the abdomen and pelvis was performed without intravenous contrast. The liver, spleen, pancreas, and adrenal glands are unremarkable. The patient is status post cholecystectomy. The kidneys are slightly atrophic. No hydronephrosis is seen. The sigmoid colon shows some scattered diverticuli. No bowel thickening or fat stranding is seen. No bowel dilatation is seen. The appendix is not visualized. No free air or fluid is seen. Urinary bladder is unremarkable. The visualized lung bases are clear. IMPRESSION: 1. Colonic diverticulosis without evidence of inflammation. 2. Otherwise no acute abnormality identified in the abdomen or pelvis. [id number] Performing Organization Address City/State/Zipcode Phone Number [facility] [address] [place] [address] * CT Head Wo Contrast (08/21/2017 6:58 PM CDT) Narrative Performed At EXAMINATION: [facility] CLINICAL H[facility]ORY: ATAXIASTROKE SUSPECTED ETIOLOGY COMPARISON:03/28/2015. TECHNIQUE: Noncontrast CT of the brain was performed from the skull base to the vertex. Both soft tissue and bone reconstruction algorithms are interpreted. CT imaging was performed with iterative reconstruction techniques and/or automated exposure control to reduce radiation dose. FINDINGS: No intracranial hemorrhage, extra-axial collection, or mass-effect is seen.No acute cortical infarct is identified. No hyperdense vessel is seen. 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 Resection cavity in the left middle cranial fossa is again noted. Involutional changes of brain are again noted. No air-fluid level is seen in the visualized portions of the paranasal sinuses. Mastoid air cells are clear. IMPRESSION: No acute intracranial abnormality identified. No significant interval change. [id number] Procedure Note Interface, Radiology Results Incoming - 08/21/2017 7:04 PM CDT EXAMINATION: CT HEAD WO CONTRAST CLINICAL HISTORY: ATAXIA STROKE SUSPECTED ETIOLOGY COMPARISON: 03/28/2015. TECHNIQUE: Noncontrast CT of the brain was performed from the skull base to the vertex. Both soft tissue and bone reconstruction algorithms are interpreted. CT imaging was performed with iterative reconstruction techniques and/or automated exposure control to reduce radiation dose. FINDINGS: No intracranial hemorrhage, extra-axial collection, or mass-effect is seen. No acute cortical infarct is identified. No hyperdense vessel is seen. 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 Resection cavity in the left middle cranial fossa is again noted. Involutional changes of brain are again noted. No air-fluid level is seen in the visualized portions of the paranasal sinuses. Mastoid air cells are clear. IMPRESSION: No acute intracranial abnormality identified. No significant interval change. [id number] Performing Organization Address [facility] Phone Number [facility] [address] [place] [address] * XR Chest 2 Vw (08/21/2017 4:00 PM CDT) Narrative Performed At Examination: XR CHEST 2 VW RADIANT Clinical history: SHORTNESS OF BREATH Comparison: May 24 Impression: 1. The heart and pulmonary vasculature are within normal limits. 2. No infiltrate or effusion is demonstrated. 3. There is no acute osseous pathology. CONCLUSION: NO RADIOGRAPHIC EVIDENCE OF ACUTE CARDIOPULMONARY ABNORMALITY. [id number] Procedure Note Hm Interface, Radiology Results Incoming - 08/21/2017 4:05 PM CDT Examination: XR CHEST 2 VW Clinical history: SHORTNESS OF BREATH Comparison: May 24 Impression: 1. The heart and pulmonary vasculature are within normal limits. 2. No infiltrate or effusion is demonstrated. 3. There is no acute osseous pathology. CONCLUSION: NO RADIOGRAPHIC EVIDENCE OF ACUTE CARDIOPULMONARY ABNORMALITY. [id number] Performing Organization Address [facility] Phone Number [facility] [address] [place] [address] after 07/08/2017 Insurance Payer Benefit Subscriber ID Type Phone Address Plan / Group HUMANA MEDICARE HUMANA HMO xxxxxxxxx HMO GOLD PLUS MEDICARE Advance Directives Patient has advance care planning documents, and code status on file. For more i nformation, please contact: Oscar Poe [address] [place] [address] Date Inactivated Comments Code Status Date Activated 12/20/2017 5:16 PM Full Code 12/19/2017 12:39 AM Code Status decision reached by: Patient
--- OUTSIDE RECORDS SUMMARY | 2018-07-09 14:28 | XMS REPORT | Continuity of Care Document ---
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/2018 Yolis Najam Pain in right hand Active Diagnosis 04/20/2018 Yolis Najam Primary osteoarthritis, right hand Active Diagnosis 03/11/2018 Yolis Najam Counseling NOS Active Diagnosis 04/20/2018 Yolis Najam Pain in right shoulder Active Diagnosis 04/20/2018 Yolis Najam Back muscle spasm Active Diagnosis 04/20/2018 Yolis Najam Cervicalgia Active Diagnosis 04/20/2018 Yolis Najam Medications Medication Details Route Status Patient Instructions Ordering Provider Order Date Source PredniSONE 1 tab(s) with food Orally Active 10 MG Orally Once a day Naja 07/14/2018 Yolis Najam Lyrica 1 capsule Orally Active 75 MG Orally Twice a day Naja 03/10/2018 Yolis Najam Ergocalciferol 1 capsule Orally Active 20394 UNIT Orally once weekly Najam 2018 Yolis Najam Tizanidine HCl 1 tablet as needed Orally Active 4 MG Orally bedtime Naja 2018 Yolis Najam Zorvolex 1 tab(s) with food as needed Orally Active 18 MG Orally Twice a day Naja 11/26/2017 Yolis Najam Diclofenac Sodium 1 tablet with food or milk Orally Active 50 MG Orally Twice a day Naja 08/06/2017 Yolis Najam Tizanidine HCl 1 tablet as needed Orally Active 4 MG Orally bedtime Najam 07/29/2017 [facility] Ergocalciferol 1 capsule Orally Active [address]508 UNIT Orally once weekly [facility] 07/29/2017 [facility] Danelle Zorvolex 1 tab(s) with food as needed Orally Active 18 MG Orally Twice a day [facility] 07/14/2017 [facility] Peter Gabapentin 1 tab(s) Orally Active 100 MG Orally Three times a day [facility] 11/22/2013 [facility] Meloxicam 1 tablet Orally Active 15 MG Orally Once a day [facility] Cymbalta 1 capsule Orally Active 30 MG Orally Once a day [facility] Voltaren as directed Transdermal Active 1 % Transdermal every 4- 6 hours [facility] Simvastatin 1 tablet in the evening Orally Active 20 MG Orally Once a day [facility] Multivitamins as directed Orally Active [facility] Propranolol HCl 1 tablet Orally Active 40 MG Orally Twice a day [facility] Sucralfate 1 tablet Orally Active 1 GM Orally Twice a day [facility] Hydrocodone-Acetaminophen 1 tablet as needed Orally Active 10- 325 MG Orally every 12 hrs [facility] Meclizine HCl 1 tablet as needed Orally Active 25 MG Orally Once a day [facility] Warfarin Sodium 1 tablet Orally Active 5 MG Orally Two times a Week [facility] Amlodipine Besylate 1 tablet Orally Active 5 MG Orally Once a day [facility] Levothyroxine Sodium 1 tablet on an empty stomach in the morning Orally Active 25 MCG Orally Once a day [facility] Voltaren as directed Transdermal Active 1 % Transdermal every 4- 6 hours [facility] Alprazolam 1 tablet Orally Active 0.25 MG Orally Three times a day [facility] Omeprazole 1 capsule Orally Active 40 MG Orally Once a day [facility] Pantoprazole Sodium 1 packet Orally Active 40 MG Orally Once a day [facility] Pravastatin Sodium 1 tablet Orally Active 20 MG Orally Once a day [facility] Metoclopramide HCl 1 tablet 30 minutes before meals and at bedtime on the tongue and allow to dissolve Orally Active 10 MG Orally Four times a day Najam Yolis Najam Xarelto 1 tablet with food Orally Active 15 MG Orally Once a day Najam Yolis Najam Pramipexole Dihydrochloride 1 tablet before bedtime Orally Active 0.5 MG Orally Once a day Najam Yolis Najam Potassium Chloride ER 2 tablets with food Orally Active 8 MEQ Orally Twice a day Najam Yolis Najam PredniSONE 1 tablet Orally Active 5 MG Orally Once a day Najam Yolis Najam Furosemide 1 tablet Orally Active 20 MG Orally Once a day Najam Yolis Najam Methotrexate 3 tabs Orally Active 2.5 mg Orally Once a week Najam Yolis Najam Citalopram Hydrobromide 1 tablet Orally Active 20 MG Orally Once a day Najam Yolis Najam Diclofenac Sodium 1 tablet with food or milk Orally Active 50 MG Orally Twice a day Najam Yolis Najam Gabapentin 1 tab(s) Orally Active 100 MG Orally Three times a day Najam Yolis Najam Gabapentin 1 tab(s) Orally Active 100 MG Orally Twice a day Najam Yolis Najam Allergies, Adverse Reactions, Alerts Substance Category Reaction Severity Reaction type Status Date Reported Comments Source penicillin Adverse Reaction Info Not Available Adverse Reaction Active 04/15/2018 Yolis Najam Immunizations Immunization Date Given Site Status Last Updated Comments Source Results Order Name Results Value Reference Range Date Interpretation Comments Source Vital Signs Vital Sign Value Date Comments Source Height 65 04/15/2018 Yolis Najam Diastolic (mm Hg) 75 04/15/2018 Yolis Najam Systolic (mm Hg) 123 04/15/2018 Yolis Najam Weight 148.0 04/15/2018 Yolis Najam Height 65 03/10/2018 Yolis Najam Diastolic (mm Hg) 48 03/10/2018 Yolis Najam Systolic (mm Hg) 71 03/10/2018 Yolis Najam Weight 142.6 03/10/2018 Yolis Najam Height 65 02/17/2018 Yolis Najam Diastolic (mm Hg) 67 02/17/2018 Yolis Najam Systolic (mm Hg) 98 02/17/2018 Yolis Najam Weight 147.8 02/17/2018 Yolis Najam Height 65 10/13/2017 Yolis Najam Diastolic (mm Hg) 52 10/13/2017 Yolis Najam Systolic (mm Hg) 97 10/13/2017 Yolis Najam Weight 152.0 10/13/2017 Yolis Najam Height 65 07/29/2017 Yolis Najam Diastolic (mm Hg) 52 07/29/2017 Yolis Najam Systolic (mm Hg) 103 07/29/2017 Yolis Najam Weight 154.6 07/29/2017 Yolis Najam Height 65 07/14/2017 Yolis Najam Diastolic (mm Hg) 47 07/14/2017 Yolis Najam Systolic (mm Hg) 115 07/14/2017 Yolis Najam Weight 150 07/14/2017 Yolis Najam Encounters Location Location Details Encounter Type Encounter Number Reason For Visit Attending Provider ADM Date DC Date Status Source Procedures Procedure Code Date Perfomer Comments Source
--- OUTSIDE RECORDS SUMMARY | 2018-07-09 14:28 | XMS REPORT ---
Author Author Yolis Green Organization [employer] Address Unknown Phone Unavailable Care Team Providers Care Broadcast Operations Manager Name Role Phone Yolis Green CP Unavailable Allergies No Known Allergies Problems Problem Type Condition Code Onset Dates Condition Status Problem Giant cell arteritis 446.5 Active Problem 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 Problem Vitamin D deficiency E55.9 Active Problem Pain in joint, hand 719.44 Active Problem Shoulder Impingement Syndrome 726.2 Active Medications No Known Medications Results No Known Results Summary Purpose eClinicalWorks Submission
--- OUTSIDE RECORDS SUMMARY | 2018-07-09 14:28 | XMS REPORT ---
Author Author Yolis Green Organization [employer] Address Unknown Phone Unavailable Care Team Providers Care Social Worker School Name Role Phone Yolis Green CP Unavailable Allergies No Known Allergies Problems Problem Type Condition Code Onset Dates Condition Status Problem 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 Problem Pain in joint, hand 719.44 Active Problem Giant cell arteritis 446.5 Active Problem Shoulder Impingement Syndrome 726.2 Active Medications No Known Medications Results No Known Results Summary Purpose eClinicalWorks Submission
--- OUTSIDE RECORDS SUMMARY | 2018-07-09 14:28 | XMS REPORT ---
Author Author Yolis Green Organization [employer] Address Unknown Phone Unavailable Care Team Providers Care Pool Finisher Name Role Phone Yolis Green CP Unavailable Allergies, Adverse Reactions, Alerts Substance Reaction Event Type penicillin Info Not Available Non Drug Allergy Problems Problem Type Condition Code Onset Dates Condition Status Assessment Pain in right hand M79.641 Active Assessment Primary osteoarthritis, 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 Assessment Primary osteoarthritis of left hand M19.042 Active Problem Giant cell arteritis 446.5 Active Problem 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 Problem Vitamin D deficiency E55.9 Active Assessment Counseling NOS Z71.9 Active Assessment Pain in joint of left hand M79.642 Active Problem Pain in joint, hand 719.44 Active Problem Shoulder Impingement Syndrome 726.2 Active Assessment Back muscle spasm M62.830 Active Assessment Vitamin D deficiency E55.9 Active Assessment Pain in right shoulder M25.511 Active Medications Medication Code System Code Instructions Start Date End Date Status Dosage Voltaren [facility] 37524967027 1 % Transdermal every 4-6 hours Active as directed Meclizine HCl [facility] 38212467613 25 MG Orally Once a day Active 1 tablet as needed Multivitamins [facility] [address] Orally Active as directed Simvastatin ND 15479627645 20 MG Orally Once a day Active 1 tablet in the evening Alprazolam ND 03541643841 0.25 MG Orally Three times a day Active 1 tablet Tizanidine HCl [facility] 53735818007 4 MG Orally bedtime July 29, 2017 Nov 26, 2017 Active 1 tablet as needed Amlodipine Besylate ND 88634809758 5 MG Orally Once a day Active 1 tablet Gabapentin [facility] 04085205912 100 MG Orally Three times a day Nov 22, 2013 Active as directed Hydrocodone-Acetaminophen [facility] 92953618513 10-325 MG Orally every 12 hrs Active 1 tablet as needed Sucralfate ND 28152191842 1 GM Orally Twice a day Active 1 tablet Propranolol HCl [facility] 37688352380 40 MG Orally Twice a day Active 1 tablet Ergocalciferol [facility] 77206366654 01211 UNIT Orally once weekly July 29, 2017 Nov 26, 2017 Active 1 capsule Levothyroxine Sodium [facility] 55858912962 25 MCG Orally Once a day Active 1 tablet on an empty stomach in the morning Meloxicam [facility] 79764510915 15 MG Orally Once a day Active 1 tablet Cymbalta [facility] 80773191764 30 MG Orally Once a day Active 1 capsule Pravastatin Sodium [facility] 60851167100 20 MG Orally Once a day Active 1 tablet Omeprazole [facility] 68839163019 40 MG Orally Once a day Active 1 capsule Zorvolex [facility] 59730782824 18 MG Orally Twice a day Nov 26, 2017 Active 1 tab(s) with food as needed Metoclopramide HCl [facility] [address]-43 10 MG Orally Four times a day Active 1 tablet 30 minutes before meals and at bedtime on the tongue and allow to dissolve Pantoprazole Sodium [facility] [address]-28 40 MG Orally Once a day Active 1 packet Warfarin Sodium [facility] 24161601430 5 MG Orally Two times a Week Active 1 tablet Vital Signs Date/Time: July 29, 2017 Height 65 in Blood Pressure Diastolic 52 mm Hg Blood Pressure Systolic 103 mm Hg Weight 154.6 lbs Results No Known Results Summary Purpose eClinicalWorks Submission
--- OUTSIDE RECORDS SUMMARY | 2018-07-09 14:29 | XMS REPORT ---
Author Author Yolis Green [facility] eClinical[employer] Address Unknown Phone Unavailable Care Team Providers Care Automation Architect Name Role Phone Yolis Green CP Unavailable Allergies, Adverse Reactions, Alerts Substance Reaction Event Type penicillin Info Not Available Non Drug Allergy Problems Problem Type Condition Code Onset Dates Condition Status Assessment Primary osteoarthritis of left hand M19.042 Active Assessment Pain in joint of left hand M79.642 Active Assessment Primary osteoarthritis, 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 Problem Giant cell arteritis 446.5 Active Problem 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 Problem Vitamin D deficiency E55.9 Active Assessment Pain in right shoulder M25.511 Active Assessment Counseling NOS Z71.9 Active Problem Pain in joint, hand 719.44 Active Problem Shoulder Impingement Syndrome 726.2 Active Assessment Back muscle spasm M62.830 Active Assessment Vitamin D deficiency E55.9 Active Assessment Pain in right hand M79.641 Active Medications Medication Code System Code Instructions Start Date End Date Status Dosage Cymbalta [facility] 05754068426 30 MG Orally Once a day Active 1 capsule Meclizine HCl [facility] 34013038403 25 MG Orally Once a day Active 1 tablet as needed Diclofenac Sodium [facility] 74233762577 50 MG Orally Twice a day August 06, 2017 Active 1 tablet with food or milk Metoclopramide HCl [facility] [address]-72 10 MG Orally Four times a day Active 1 tablet 30 minutes before meals and at bedtime on the tongue and allow to dissolve Gabapentin [facility] 79157215401 100 MG Orally Three times a day Nov 22, 2013 Active as directed Omeprazole [facility] 21903110809 40 MG Orally Once a day Active 1 capsule Pantoprazole Sodium [facility] [address]-15 40 MG Orally Once a day Active 1 packet Amlodipine Besylate ND 07753061446 5 MG Orally Once a day Active 1 tablet Alprazolam [facility] 92772412221 0.25 MG Orally Three times a day Active 1 tablet Hydrocodone-Acetaminophen [facility] 08187096534 10-325 MG Orally every 12 hrs Active 1 tablet as needed Propranolol HCl [facility] 20641609409 40 MG Orally Twice a day Active 1 tablet Levothyroxine Sodium [facility] 68188012622 25 MCG Orally Once a day Active 1 tablet on an empty stomach in the morning Warfarin Sodium [facility] 16046261257 5 MG Orally Two times a Week Active 1 tablet Multivitamins [facility] 103[address] Orally Active as directed Pravastatin Sodium [facility] 46552472908 20 MG Orally Once a day Active 1 tablet Ergocalciferol [facility] 19548360489 13946 UNIT Orally once weekly 2018 Active 1 capsule Voltaren [facility] 16319276787 1 % Transdermal every 4-6 hours Active as directed Simvastatin [facility] 10879236862 20 MG Orally Once a day Active 1 tablet in the evening Sucralfate [facility] 89534612232 1 GM Orally Twice a day Active 1 tablet Tizanidine HCl [facility] 25306708160 4 MG Orally bedtime 2018 Active 1 tablet as needed Vital Signs Date/Time: October 13, 2017 Height 65 in Blood Pressure Diastolic 52 mm Hg Blood Pressure Systolic 97 mm Hg Weight 152.0 lbs Results No Known Results Summary Purpose eClinicalWorks Submission
--- OUTSIDE RECORDS SUMMARY | 2018-07-09 14:29 | XMS REPORT ---
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 Problem Vitamin D deficiency E55.9 Active Assessment Pain in right shoulder M25.511 Active Problem Pain in joint, hand 719.44 Active Problem Shoulder Impingement Syndrome 726.2 Active Assessment Back muscle spasm M62.830 Active Assessment Vitamin D deficiency E55.9 Active Assessment Pain in right hand M79.641 Active Assessment Cervicalgia M54.2 Active Assessment Primary osteoarthritis of left hand M19.042 Active Medications Medication Code System Code Instructions Start Date End Date Status Dosage Sucralfate [facility] 80626994518 1 GM Orally Twice a day Active 1 tablet Levothyroxine Sodium [facility] 65548165793 25 MCG Orally Once a day Active 1 tablet on an empty stomach in the morning Multivitamins [facility] [address] Orally Active as directed Cymbalta [facility] 41038814797 30 MG Orally Once a day Active 1 capsule Diclofenac Sodium [facility] 85499037973 50 MG Orally Twice a day August 06, 2017 Active 1 tablet with food or milk Citalopram Hydrobromide [facility] 68655995500 20 MG Orally Once a day Active 1 tablet Xarelto [facility] 81366759188 15 MG Orally Once a day Active 1 tablet with food Alprazolam [facility] 92091095122 0.25 MG Orally Three times a day Active 1 tablet Pravastatin Sodium [facility] 91109251069 20 MG Orally Once a day Active 1 tablet Amlodipine Besylate [facility] 78110158814 5 MG Orally Once a day Active 1 tablet Pramipexole Dihydrochloride [facility] 77765706807 0.5 MG Orally Once a day Active 1 tablet before bedtime Potassium Chloride ER [facility] 38065839385 8 MEQ Orally Twice a day Active 2 tablets with food Furosemide [facility] 52422500854 20 MG Orally Once a day Active 1 tablet Methotrexate [facility] 95928993189 2.5 MG Orally Active as directed Metoclopramide HCl [facility] [address]-50 10 MG Orally Four times a day Active 1 tablet 30 minutes before meals and at bedtime on the tongue and allow to dissolve Simvastatin [facility] 24896319102 20 MG Orally Once a day Active 1 tablet in the evening PredniSONE [facility] 35510611026 5 MG Orally Once a day Active 1 tablet Pantoprazole Sodium [facility] [address]-35 40 MG Orally Once a day Active 1 packet Meclizine HCl [facility] 59903669090 25 MG Orally Once a day Active 1 tablet as needed Warfarin Sodium [facility] 50920139557 5 MG Orally Two times a Week Active 1 tablet Propranolol HCl [facility] 28289498427 40 MG Orally Twice a day Active 1 tablet Voltaren [facility] 46924592527 1 % Transdermal every 4-6 hours Active as directed Gabapentin [facility] 02205939234 100 MG Orally Three times a day Nov 22, 2013 Active 1 tab(s) Omeprazole [facility] 57843072085 40 MG Orally Once a day Active 1 capsule Hydrocodone-Acetaminophen [facility] 01203647709 10-325 MG Orally every 12 hrs Active 1 tablet as needed Diclofenac Sodium [facility] 00643680296 50 MG Orally Twice a day Active 1 tablet with food or milk Vital Signs Date/Time: Feb 17, 2018 Height 65 in Blood Pressure Diastolic 67 mm Hg Blood Pressure Systolic 98 mm Hg Weight 147.8 lbs Results No Known Results Summary Purpose eClinicalWorks Submission
--- OUTSIDE RECORDS SUMMARY | 2018-07-09 14:29 | XMS REPORT ---
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 Problem Pain in joint, hand 719.44 Active Problem Giant cell arteritis 446.5 Active Assessment Pain in joint of left hand M79.642 Active Assessment Primary osteoarthritis, 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 Problem Shoulder Impingement Syndrome 726.2 Active Assessment Counseling NOS Z71.9 Active Medications Medication Code System Code Instructions Start Date End Date Status Dosage Cymbalta [facility] 88598097341 30 MG Orally Once a day Active 1 capsule Voltaren [facility] 17764399073 1 % Transdermal every 4-6 hours Active as directed Simvastatin ND 05771822877 20 MG Orally Once a day Active 1 tablet in the evening Multivitamins [facility] [address] Orally Active as directed Propranolol HCl ND 14562471786 40 MG Orally Twice a day Active 1 tablet Sucralfate ND 13144897991 1 GM Orally Twice a day Active 1 tablet Gabapentin [facility] 85499428911 100 MG Orally Three times a day Nov 22, 2013 Active as directed Hydrocodone-Acetaminophen [facility] 06624445736 10-325 MG Orally every 12 hrs Active 1 tablet as needed Meclizine HCl ND 32852828692 25 MG Orally Once a day Active 1 tablet as needed Warfarin Sodium ND 38754230649 5 MG Orally Two times a Week Active 1 tablet Amlodipine Besylate ND 30918366385 5 MG Orally Once a day Active 1 tablet Meloxicam ND 46882643087 15 MG Orally Once a day Active 1 tablet Levothyroxine Sodium ND 07225276891 25 MCG Orally Once a day Active 1 tablet on an empty stomach in the morning Voltaren [facility] 83664942089 1 % Transdermal every 4-6 hours Active as directed Zorvolex [facility] 12847425357 18 MG Orally Twice a day July 14, 2017 Active 1 tab(s) with food as needed Alprazolam [facility] 29016083290 0.25 MG Orally Three times a day Active 1 tablet Omeprazole [facility] 41226607162 40 MG Orally Once a day Active 1 capsule Pantoprazole Sodium [facility] [address]-40 40 MG Orally Once a day Active 1 packet Pravastatin Sodium [facility] 62145504928 20 MG Orally Once a day Active 1 tablet Metoclopramide HCl [facility] [address]-75 10 MG Orally Four times a day Active 1 tablet 30 minutes before meals and at bedtime on the tongue and allow to dissolve Vital Signs Date/Time: July 14, 2017 Height 65 in Blood Pressure Diastolic 47 mm Hg Blood Pressure Systolic 115 mm Hg Weight 150 lbs Results No Known Results Summary Purpose eClinicalWorks Submission
--- OUTSIDE RECORDS SUMMARY | 2018-07-09 14:29 | XMS REPORT ---
Author Author Yolis Green Organization [employer] Address Unknown Phone Unavailable Care Team Providers Care Registered Safety Engineer Name Role Phone Yolis Green CP Unavailable [...]
--- OUTSIDE RECORDS SUMMARY | 2018-07-09 14:29 | XMS REPORT ---
Author Author Yolis Green Organization [employer] Address Unknown Phone Unavailable Care Team Providers Care Gas Engine Operator Generators Name Role Phone Yolis Green CP Unavailable [...]
--- OUTSIDE RECORDS SUMMARY | 2018-07-09 14:29 | XMS REPORT ---
Author Author Yolis Green Organization [employer] Address Unknown Phone Unavailable Care Team Providers Care Senior Reservoir Engineer Name Role Phone Yolis Green CP [...]
--- OUTSIDE RECORDS SUMMARY | 2018-07-09 14:29 | XMS REPORT ---
Author Author Yolis Green Organization [employer] Address Unknown Phone Unavailable Care Team Providers Care Ambulance Driver Paramedic Name Role Phone Yolis Green CP Unavailable Allergies, Adverse Reactions, Alerts Substance Reaction Event Type penicillin Info Not Available Non Drug Allergy Problems Problem Type Condition Code Onset Dates Condition Status Assessment Pain in right hand M79.641 Active Assessment Counseling NOS Z71.9 Active Assessment Pain in joint of left hand M79.642 Active Assessment Cervicalgia M54.2 Active Assessment Back muscle spasm M62.830 Active Assessment Vitamin D deficiency E55.9 Active Problem Giant cell arteritis 446.5 Active Problem 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 Problem Vitamin D deficiency E55.9 Active Assessment Pain in right shoulder M25.511 Active Problem Pain in joint, hand 719.44 Active Problem Shoulder Impingement Syndrome 726.2 Active Medications Medication Code System Code Instructions Start Date End Date Status Dosage Propranolol HCl [facility] 19465944340 40 MG Orally Twice a day Active 1 tablet Simvastatin ND 22672658683 20 MG Orally Once a day Active 1 tablet in the evening Gabapentin ND 16459921811 100 MG Orally Twice a day Active 1 tab(s) PredniSONE ND 05273541794 10 MG Orally Once a day July 14, 2018 Active 1 tab(s) with food Lyrica [facility] 87682197504 75 MG Orally Twice a day Mar 10, 2018 Active 1 capsule Pantoprazole Sodium [facility] [address]-27 40 MG Orally Once a day Active 1 packet Xarelto [facility] 80946629845 15 MG Orally Once a day Active 1 tablet with food Diclofenac Sodium ND 06300810748 50 MG Orally Twice a day Active 1 tablet with food or milk Furosemide ND 41947834305 20 MG Orally Once a day Active 1 tablet Methotrexate [facility] 72821724814 2.5 mg Orally Once a week Active 3 tabs Pramipexole Dihydrochloride [facility] 96089936860 0.5 MG Orally Once a day Active 1 tablet before bedtime Citalopram Hydrobromide [facility] 62427893152 20 MG Orally Once a day Active 1 tablet Levothyroxine Sodium [facility] 82729144653 25 MCG Orally Once a day Active 1 tablet on an empty stomach in the morning Sucralfate [facility] 00427563219 1 GM Orally Twice a day Active 1 tablet Potassium Chloride ER [facility] 33135533318 8 MEQ Orally Twice a day Active 2 tablets with food Vital Signs Date/Time: Apr 15, 2018 Height 65 in Blood Pressure Diastolic 75 mm Hg Blood Pressure Systolic 123 mm Hg Weight 148.0 lbs Results No Known Results Summary Purpose eClinicalWorks Submission
--- OUTSIDE RECORDS SUMMARY | 2018-07-09 14:29 | XMS REPORT ---
Author Author Yolis Green Organization e[employer]Works Address Unknown Phone Unavailable Care Team Providers Care Regional Tanker Truck Driver Name Role Phone Yolis Green CP Unavailable [...] Instructions Start Date End Date Status Dosage Xarelto [facility] 79021476454 15 MG Orally Once a day Active 1 tablet with food Lyrica [facility] 40663990568 75 MG Orally Twice a day Mar 10, 2018 Active 1 capsule Pramipexole Dihydrochloride [facility] 54310123771 0.5 MG Orally Once a day Active 1 tablet before bedtime Levothyroxine Sodium [facility] 42251233546 25 MCG Orally Once a day Active 1 tablet on an empty stomach in the morning Potassium Chloride ER [facility] 90860608578 8 MEQ Orally Twice a day Active 2 tablets with food PredniSONE [facility] 86699426215 5 MG Orally Once a day Active 1 tablet Furosemide ND 26765296534 20 MG Orally Once a day Active 1 tablet Methotrexate [facility] 75821682694 2.5 MG Orally Active as directed Sucralfate [facility] 91730734246 1 GM Orally Twice a day Active 1 tablet Simvastatin [facility] 30712143801 20 MG Orally Once a day Active 1 tablet in the evening Propranolol HCl [facility] 47010011502 40 MG Orally Twice a day Active 1 tablet Citalopram Hydrobromide [facility] 36960734587 20 MG Orally Once a day Active 1 tablet Diclofenac Sodium [facility] 58477187644 50 MG Orally Twice a day Active 1 tablet with food or milk Gabapentin [facility] 59971774454 100 MG Orally Three times a day Active 1 tab(s) Pantoprazole Sodium [facility] [address]-14 40 MG Orally Once a day Active 1 packet Vital Signs Date/Time: Mar 10, 2018 Height 65 in Blood Pressure Diastolic 48 mm Hg Blood Pressure Systolic 71 mm Hg Weight 142.6 lbs Results No Known Results Summary Purpose eClinicalWorks Submission
--- OUTSIDE RECORDS SUMMARY | 2018-07-09 14:29 | XMS REPORT ---
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 66911511961 50 MG Orally Twice a day August 06, 2017 Nov 04, 2017 Active 1 tablet with food or milk Zorvolex [facility] 79357497281 18 MG Orally Twice a day Nov 26, 2017 Inactive 1 tab(s) with food as needed Meloxicam [facility] 51617878421 15 MG Orally Once a day Inactive 1 tablet Results No Known Results Summary Purpose eClinicalWorks Submission
--- OUTSIDE RECORDS SUMMARY | 2018-07-09 14:29 | XMS REPORT ---
Author Author Yolis Green Organization [employer] Address Unknown Phone Unavailable Care Team Providers Care Teacher Education Director Name Role Phone Yolis Green CP Unavailable [...]
[2018-07-09 15:47] LABS: BASOPHILS % 0.2 % (0.0-1.0); EOSINOPHILS # (AUTO) 0.1 (0.0-0.4); EOSINOPHILS % 0.5 % (0.0-6.0); HEMATOCRIT 31.8 % (34.2-44.1); LYMPHOCYTES # (AUTO) 0.5 (1.0-3.2); LYMPHOCYTES % 5.6 % (18.0-39.1); MEAN CORPUSCULAR HEMOGLOBIN 32.9 pg (28-32); MEAN CORPUSCULAR HGB CONC 31.4 g/dL (31-35); MEAN CORPUSCULAR VOLUME 104.6 fL (81-99); MONOCYTES # (AUTO) 0.3 (0.2-0.8); MONOCYTES % 2.8 % (4.4-11.3); NEUTROPHILS # (AUTO) 8.4 (2.1-6.9); NEUTROPHILS % 88.4 % (38.7-80.0); PLATELET COUNT 297 x10e3/uL (140-360); RED BLOOD COUNT 3.04 x10e6/uL (3.6-5.1); RED CELL DISTRIBUTION WIDTH 25.7 % (11.7-14.4)
[2018-07-09 15:52] LABS: INR 0.88; PROTHROMBIN TIME 12.4 seconds (11.9-14.5)
[2018-07-09 15:53] LABS: PARTIAL THROMBOPLASTIN TIME 30.3 seconds (23.8-35.5)
[2018-07-09 15:59] LABS: BILIRUBIN,URINE NEGATIVE (NEGATIVE); CLARITY,URINE CLEAR (CLEAR); COLOR,URINE YELLOW (YELLOW); KETONES,URINE NEGATIVE (NEGATIVE); LEUKOCYTE ESTERASE ,URINE NEGATIVE (NEGATIVE); NITRITE,URINE NEGATIVE (NEGATIVE); PROTEIN,URINE DIPSTICK NEGATIVE (NEGATIVE); URINE UROBILINOGEN 0.2 mg/dL (0.2 - 1)
[2018-07-09 16:02] LABS: ALANINE AMINOTRANSFERASE 11 IU/L (0-55); ALBUMIN 3.5 g/dL (3.5-5.0); ALBUMIN/GLOBULIN RATIO 0.9 (0.8-2.0); ALKALINE PHOSPHATASE 62 IU/L (40-150); ANION GAP 12.6 mmol/L (8-16); BLOOD UREA NITROGEN 23 mg/dL (7-26); BUN/CREATININE RATIO 26 (6-25); CALCIUM 9.5 mg/dL (8.4-10.2); CARBON DIOXIDE 29 mmol/L (22-29); CHLORIDE 102 mmol/L (98-107); CREATININE, SERUM 0.87 mg/dL (0.57-1.11); EST GLOMERULAR FILTRATION RATE > 60 ML/MIN (60-); POTASSIUM 3.6 mmol/L (3.5-5.1); SODIUM 140 mmol/L (136-145)
[2018-07-09 16:09] LABS: GLUCOSE 29 mg/dL (74-118)
[2018-07-09 16:11] LABS: BACTERIA,URINE MODERATE /HPF; EPITHELIAL CELLS,URINE MODERATE /LPF
[2018-07-09] MEDS ORDERED: DEXTROSE 50% SYRINGE 50 ML IV ONE ×2 (16:14→16:30)
[2018-07-09] MEDS ORDERED: DEXTROSE 50% SYRINGE 50 ML IV STA (16:18)
--- NOTE | 2018-07-09 17:55 | Diagnostic Imaging Report ---
EXAMINATION: CHEST SINGLE (PORTABLE) INDICATION: EDEMA COMPARISON: None FINDINGS: TUBES and LINES: None. LUNGS: Mild patchy density in the lung bases following the left lung base laterally may represent atelectasis. Slight prominence of the pulmonary vasculature. There is no evidence of pneumonia or pulmonary edema. PLEURA: No pleural effusion or pneumothorax. Bilateral apical calcified pleural scarring. HEART AND MEDIASTINUM: The cardiac silhouette is mildly enlarged. Mild considerations of the aortic arch. BONES AND SOFT TISSUES: No acute osseous lesion. 5 small metallic anchors projected on the right humeral head. UPPER ABDOMEN: No free air under the diaphragm. IMPRESSION: Mild cardiomegaly. Possible mild pulmonary venous congestion. Signed by: Dr. Gregor Salazar M.D. on 07/09/2018 5:51 PM
[2018-07-09 20:54] LABS: RBC MORPHOLOGY COMMENT NORMAL
[2018-07-09 20:55] LABS: PLATELET ESTIMATE ADEQUATE; PLATELET MORPHOLOGY COMMENT NORMAL
== END 2018-07-09 19:05 | disposition home or self-care (01) ==
LOC: ER 14:23
DX: R60.9 Edema, unspecified (principal); I50.9 Heart failure, unspecified; I87.2 Venous insufficiency (chronic) (peripheral); I10 Essential (primary) hypertension; J44.9 Chronic obstructive pulmonary disease, unspecified; E03.9 Hypothyroidism, unspecified; Z86.73 Personal history of transient ischemic attack (TIA), and cerebral infarction without residual deficits; F17.210 Nicotine dependence, cigarettes, uncomplicated
CPT/HCPCS: 36415; 71045; 80053; 81001; 82948; 83880; 85025; 85610; 85730; 99284; J7799